=== PATIENT | female | born 1930 | race Caucasian/White ===

== ENCOUNTER 2017-04-11 13:04 | Inpatient (IN) ==
--- NOTE | 2017-04-11 13:32 | Emergency Department Note ---
Disposition Clinical Impression: Fall Qualifiers: Encounter type: initial encounter Qualified Code(s): W19.XXXA - Unspecified fall, initial encounter Hip pain Qualifiers: Laterality: left Qualified Code(s): M25.552 - Pain in left hip Pubic ramus fracture Qualifiers: Encounter type: initial encounter Fracture type: closed Laterality: left Qualified Code(s): S32.592A - Other specified fracture of left pubis, initial encounter for closed fracture Disposition: Admitted As Inpatient Condition: Good Instructions: Fall Prevention for Older Adults (ED) Reasons to Return/Additional Instructions: Please follow up with your primary care provider at the next available appointment. I have provided information to the [facility]. Please return to the emergency department if you have any worsening of your symptoms including worsening of your leg pain, numbness, weakness, tingling, inability to walk or any other symptoms that may be concerning to you. Referrals: [facility] [Outside] Forms: ED Satisfaction Letter Time of Disposition: 16:55 General Adult HPI - General Chief complaint: ED Fall Stated complaint: left leg and hip pain Time Seen by Provider: 04/11/17 13:17 Source: patient, family Limitations: no limitations Nursing Notes Reviewed: Yes Vital Signs Reviewed: Yes - History of Present Illness HPI Narrative: Patient is a 86-year-old female that presents to the emergency department after a fall. She states that she was leaving [employer] today and slipped on the steps of the [employer] and fell into the [facility]. She states that she is now having left hip and leg pain. Patient denies any numbness weakness or tingling. Patient denies any loss of consciousness or hitting her head when she fell. Patient does state that she is on a blood thinner of Plavix and aspirin. Patient denies any loss of bowel or bladder control. Patient denies any back pain at this time. Pain Scale: 6 - Related Data Home Medications Medication Instructions Recorded Confirmed Aspirin [Lo-Dose Aspirin EC] 81 mg PO DAILY 04/11/17 04/11/17 Cholecalciferol (D-3) [Vitamin D] 1,000 unit PO DAILY 04/11/17 04/11/17 Clopidogrel [Plavix] 75 mg PO AD 04/11/17 04/11/17 Levothyroxine [Synthroid] 75 mcg PO DAILY 04/11/17 04/11/17 Loratadine [Allergy Relief] 10 mg PO DAILY 04/11/17 04/11/17 Losartan/Hydrochlorothiazide 0.5 tab PO DAILY 04/11/17 04/11/17 [Losartan-Hctz 100-25 mg Tab] Metoprolol [Lopressor] 25 mg PO DAILY 04/11/17 04/11/17 Simvastatin [Zocor] 0.5 mg PO AD 04/11/17 04/11/17 Allergies Allergy/AdvReac Type Severity Reaction Status Date / Time No Known Allergies Allergy Verified 04/11/17 13:16 All systems ED: reviewed and negative except as stated. Musculoskeletal: Reports: other (Left hip pain, thigh pain and knee pain). Denies: back pain Neurological: Denies: weakness, numbness, paresthesias Past Medical History - Past Medical History Medical history: Reports: diabetes, hypertension, TIA Psychiatric history: Reports: no psych history - Social History Smoking Status: Never smoker Smokeless Tobacco Status: No Alcohol use: Reports: none Drug use: Reports: none Physical Exam - General Limitations: no limitations General appearance: alert, in no apparent distress - Head Head exam: atraumatic, normocephalic - Eye Eye exam: Present: normal appearance, EOMI - Neck Neck exam: Present: normal inspection, full ROM, trachea midline - Respiratory Respiratory exam: Present: normal lung sounds bilaterally. Absent: respiratory distress, wheezes - Cardiovascular Cardiovascular exam: Present: regular rate, normal rhythm, normal heart sounds, +S1, +S2 - Abdominal Exam Abdominal exam: Present: soft, Non-Tender, normal bowel sounds - Expanded Lower Extremity Exam Hip/Pelvis exam: Present: normal inspection, full ROM, tenderness (Patient has tenderness to the left hip) Upper leg exam: Present: normal inspection, full ROM, tenderness (She has tenderness to the left thigh) Knee exam: Present: normal inspection, full ROM, tenderness (Patient has tenderness to the left knee) Lower leg exam: Present: normal inspection, full ROM. Absent: tenderness Ankle exam: Present: normal inspection, full ROM. Absent: tenderness Foot/toe exam: Present: normal inspection, full ROM. Absent: tenderness - Back Exam Back exam: Present: normal inspection, full ROM. Absent: tenderness - Neurological Exam Neurological exam: Present: alert, oriented X3 - Psychiatric Psychiatric exam: Present: normal affect, normal mood - Skin Skin exam: Present: warm, dry, intact Course Vital Signs Temperature 98.1 F 04/11/17 13:12 Pulse Rate 71 04/11/17 13:12 Respiratory Rate 16 04/11/17 13:12 Blood Pressure 141/84 04/11/17 13:12 O2 Sat by Pulse Oximetry 95 04/11/17 13:12 Temperature 98.1 F 04/11/17 13:12 Pulse Rate 71 04/11/17 13:12 Respiratory Rate 16 04/11/17 13:12 Blood Pressure 141/84 04/11/17 13:12 O2 Sat by Pulse Oximetry 95 04/11/17 13:12 Medical Decision Making - MDM Narrative Medical decision making narrative: Due the patient having a recent fall and having pain over the left hip, thigh and knee the patient will receive x-rays to rule out any acute fracture or pathology. The x-rays were negative for acute fracture. The patient will be ambulated throughout the department. During ambulation of the patient she states that she had a lot of pain in her left leg. Due to the patient having significant amounts of pain we will obtain a CT scan of the left lower extremity to rule out possible occult fracture I was unable to be visualized on plain film x-rays. Patient was also given analgesics here in the emergency department.. I called and spoke with Dr. Teague the orthopedist and he reviewed the images and agreed that there was a superior rami fracture. Due to the patient having difficulty with ambulation and stating that it is too painful to stand we felt that the patient should be admitted to the hospital. Dr. Teague was in agreement with this and stated that she may need to be placed for rehabilitation. I did inform the patient of this and her family and they are in agreement with the admission and possible rehabilitation. Patient was offered further analgesics here in the emergency Department but stated she does not need any further pain medication at this time. I called and spoke with the hospitalist and they have accepted the patient to their service. The patient will be admitted to the hospital at this time. - Radiology Data Radiology results reviewed: Yes I reviewed the patient's radiology results. Femur X-Ray 04/11/17 13:27 IMPRESSION: Pelvis: Mild degenerative changes in the hips. No acute osseous abnormality. Left femur: Left total knee arthroplasty. No hardware complication. No acute osseous abnormality. 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 No acute osseous abnormality. RECOMMENDATION: Follow-up studies as clinically indicated. D/ / Bria Jones MD / Bria Jones MD Interpreting Provider: Bria Jones MD Knee X-Ray 04/11/17 13:27 IMPRESSION: Pelvis: Mild degenerative changes in the hips. No acute osseous abnormality. Left femur: Left total knee arthroplasty. No hardware complication. No acute osseous abnormality. 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 No acute osseous abnormality. RECOMMENDATION: Follow-up studies as clinically indicated. D/ / Bria Jones MD / Bria Jones MD Interpreting Provider: Bria Jones MD Pelvis X-Ray 04/11/17 13:27 IMPRESSION: Pelvis: Mild degenerative changes in the hips. No acute osseous abnormality. Left femur: Left total knee arthroplasty. No hardware complication. No acute osseous abnormality. 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 No acute osseous abnormality. RECOMMENDATION: Follow-up studies as clinically indicated. D/ / Bria Jones MD / Bria Jones MD Interpreting Provider: Bria Jones MD Femur X-Ray 04/11/17 13:27 IMPRESSION: Pelvis: Mild degenerative changes in the hips. No acute osseous abnormality. Left femur: Left total knee arthroplasty. No hardware complication. No acute osseous abnormality. 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 No acute osseous abnormality. RECOMMENDATION: Follow-up studies as clinically indicated. D/ / Bria Jones MD / Bria Jones MD Interpreting Provider: Bria Jones MD Knee X-Ray 04/11/17 13:27 IMPRESSION: Pelvis: Mild degenerative changes in the hips. No acute osseous abnormality. Left femur: Left total knee arthroplasty. No hardware complication. No acute osseous abnormality. 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 No acute osseous abnormality. RECOMMENDATION: Follow-up studies as clinically indicated. D/ / Bria Jones MD / Bria Jones MD Interpreting Provider: Bria Jones MD Pelvis X-Ray 04/11/17 13:27 IMPRESSION: Pelvis: Mild degenerative changes in the hips. No acute osseous abnormality. Left femur: Left total knee arthroplasty. No hardware complication. No acute osseous abnormality. 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 No acute osseous abnormality. RECOMMENDATION: Follow-up studies as clinically indicated. D/ / Bria Jones MD / Bria Jones MD Interpreting Provider: Bria Jones MD Lower Extremity CT 04/11/17 14:55 IMPRESSION: Comminuted and minimally displaced fracture of the left superior pubic ramus. No discrete fracture or dislocation of the left hip. D/ / Levi Garduno MD / Levi Garduno MD Interpreting Provider: Levi Garduno MD Attestation Statement - Attestation Attestation: I, Jaime Walker DO, examined this patient [id number] and my medical decision-making was reviewed with Dr. Mehdi Cadet, Resident Physician. I agree with the documented findings, disposition and treatment plan as described except to the extent set forth below. Please see my progress notes for details. 86-year-old female presents to the emergency room after tripping on a stair walking out of [employer]. She fell sideways hitting her left knee and hip on the ground. She did not hit her head. She did not injure her upper extremities or chest. Patient denied any loss of consciousness or closed head trauma this time. Patient was alert and ambulatory on coming in to have pain over the lateral aspect of her left thigh. Patient has no gross deformity or injury to the upper extremities or shoulder girdle. Chest pain range of motion these at this time. She has no chest wall deformity or injury. The original trauma noted there. Lungs are clear heart is regular. Patient mild tenderness over the lateral aspect of the left thyroid no visible signs of bruising deformity or injury. Patient has stable pelvis on evaluation her knee is not deformed or injury. Pulses are intact and sensation is normal in bilateral lower extremities. Imaging modalities of the pelvis left hip left femur and left knee are otherwise unremarkable this time. Will be indicated here in the emergency room and determine disposition. Clinically she did not want CT imaging of the head or neck secondary to the negative workup at this time. Patient is otherwise stable. Disposition to be established. See detailed documentation of the physical exam, medical intervention, medical decision- making and disposition in the resident physician's note [id number] Patient was not able to ambulate secondary to pain. CT imaging confirms what appears to be a comminuted superior pubic rami fracture. No other visible signs of trauma to the hip joint itself at this time. Patient will be ambulated again with what appears to be stable fracture and no acute signs alignment of the pubic symphysis. Patient is informed. Disposition pending information and ability to ambulate. [id number] Patient is unable to ambulate. The CT imaging is reviewed with the the on-call orthopedic physician. He recommended admission to the patient is unable to ambulate. Patient will be admitted this time for psychologist social consultation and possible placement
--- NOTE | 2017-04-11 18:26 | Internal Med History&Physical ---
Date of Encounter: 04/11/17 Time of Encounter: 18:25 Assessment and Plan (1) Pubic ramus fracture Current visit: Yes Status: Acute Fentanyl and Toradol for pain PT ordered for rehab recommendations Non-surgical per ortho. Qualifiers: Encounter type: initial encounter Fracture type: closed Laterality: left Qualified Code(s): S32.592A - Other specified fracture of left pubis, initial encounter for closed fracture (2) Hypothyroidism Current visit: No Status: Chronic Continue home dose of Synthroid Qualifiers: Hypothyroidism type: unspecified Qualified Code(s): E03.9 - Hypothyroidism , unspecified Internal Medicine - H&P: HPI Chief complaint: fall with suprapubic ramus fx Admitted From: Emergency Dept Plans for Post Hospital Care: Transfer Inp Rehab Fac History of present illness: Ms. Vera is a 86 year old female Relatively healthy 86-year-old waman who fell while leaving [employer]. She slipped on the steps and fell into the [facility]. She denies loss of consciousness or hitting her head when she fell. Patient does state that she is not taking anticoagulation but is using aspirin and plavix. n a blood thinner of Plavix and aspirin. Her Xray studies; Pelvis, left knee and left femur did not show fracures or dislocations. The CT lower extremity showed a comminute minimally displaced left pubic rami fracture. Orthopedic surgery was called by the ER attending and per report she will not require surgery. We are asked to admit for symptomatic control and evaluation for rehab. She cannot bear weight or walk. Pain Scale: 6 Past Med Surg Social Fam HX - Past Medical History Medical history: diabetes, hypertension, TIA Psychiatric history: no psych history - Social History Smoking Status: Never smoker Smokeless Tobacco Status: No Alcohol use: none Drug use: none Internal Medicine - H&P: Meds Aspirin [Lo-Dose Aspirin EC] 81 mg PO DAILY 04/11/17 [History] Cholecalciferol (D-3) [Vitamin D] 1,000 unit PO DAILY 04/11/17 [History] Clopidogrel [Plavix] 75 mg PO AD 04/11/17 [History] Levothyroxine [Synthroid] 75 mcg PO DAILY 04/11/17 [History] Loratadine [Allergy Relief] 10 mg PO DAILY 04/11/17 [History] Losartan/Hydrochlorothiazide [Losartan-Hctz 100-25 mg Tab] 0.5 tab PO DAILY 01/16 [History] Metoprolol [Lopressor] 25 mg PO DAILY 04/11/17 [History] Simvastatin [Zocor] 0.5 mg PO AD 04/11/17 [History] 3 Allergy/AdvReac Type Severity Reaction Status Date / Time No Known Allergies Allergy Verified 04/11/17 13:16 All Systems PM: A 10-system review of systems was performed and is negative for pertinent findings except as documented above in the HPI. - Constitutional Constitutional: falls, no anorexia, no chills, no excessive sweating, no lethargy, no weight gain, no weight loss - EENT Eyes: no blurry vision, no decreased night vision, no irritation, no loss of peripheral vision, no photophobia, no tunnel vision Nose, mouth and throat: no epistaxis, no facial pain, no mouth pain, no nasal congestion, no nasal obstruction, no neck mass, no neck pain, no sinus pain, no sore throat, no throat swelling - Cardiovascular Cardiovascular ROS IM: no chest pain, no claudication, no dyspnea, no edema, no irregular heart rhythm - Respiratory Respiratory: no cough, no hemoptysis, no snoring, no stridor - Gastrointestinal Gastrointestinal: no bloating, no change in stool character, no coffee ground emesis, no heartburn, no hematemesis, no hematochezia, no melena - Musculoskeletal Musculoskeletal ROS IM: no arthralgias, no back pain, no myalgias, no neck pain , no numbness - Integumentary Integumentary IM: no new lesions, no rash, no skin ulcer, no jaundice - Psychiatric Psychiatric: no hallucinations, no homicidal ideation, no suicidal ideation - Endocrine Endocrine IM: no cold intolerance, no heat intolerance, no polyphagia, no polyuria - Allergic/Immunologic Allergic/Immunologic: no seasonal rhinorrhea, no wheezing - Constitutional Vitals: Temp Pulse Resp BP Pulse Ox 98.1 F 69 16 144/65 98 04/11/17 13:12 04/11/17 16:53 04/11/17 17:43 04/11/17 17:43 04/11/17 16:53 General appearance: Present: A&O X 3, pleasant, no acute distress - Head Head exam: Present: atraumatic, normocephalic - Eye Eye exam: Present: EOMI, PERRL, conjuntiva pink, sclera anicteric Pupils: Present: PERRL - Neck Neck exam general surgery: Present: supple, trachea midline. Absent: lymphadenopathy - Respiratory Respiratory exam: Present: CTAB. Absent: accessory muscle use, rales, rhonchi, wheezes - Cardiovascular Cardiovascular exam: Present: RRR, +S1, +S2. Absent: diastolic murmur, gallop, rubs, systolic murmur - GI/Abdominal GI/Abdominal exam: Present: normal bowel sounds, soft, no peritoneal signs. Absent: distended, tenderness - Extremities Exam Extremities exam: Present: warm, radial pulses palpable and symmetrical. Absent : calf tenderness, cyanotic, pedal edema - Neurological Exam Neurological exam: Present: CN II-XII intact, oriented X3, no focal deficits. Absent: pronater drift, facial droop, speech deficit - Skin Skin exam: Present: dry, intact
[2017-04-11] MEDS ORDERED: *HR* FentaNYL (PF) 100 MCG/2 ML VIAL IVP PRN (19:04)
[2017-04-11] MEDS: *HR* Heparin 5,000 UNIT/ML VIAL SQ SCH (21:17)
[2017-04-11] MEDS: traMADol 50 MG TABLET PO PRN (23:36)
[2017-04-12] MEDS: *HR* Heparin 5,000 UNIT/ML VIAL SQ SCH ×3 (06:32→21:31)
[2017-04-12 07:37] LABS: Basophils % 0.8 %; Eosinophils # 0.1 K/mcL (0.0-0.6); Eosinophils % 1.5 %; Hematocrit 33.4 % (35.3-44.9); Hemoglobin 11.1 g/dL (11.5-15.4); Immature Granulocytes % 0.2 % (0-4); Lymphocytes # 0.8 K/mcL (0.6-4.6); Lymphocytes % 16.1 %; Mean Corpuscular HGB Conc 33.2 g/dL (31.6-35.5); Mean Corpuscular Hemoglobin 30.1 pg (28.0-33.3); Mean Corpuscular Volume 90.5 fL (83.0-100.0); Monocytes # 0.5 K/mcL (0.0-1.3); Monocytes % 10.9 %; Neutrophils # 3.4 K/mcL (1.6-8.9); Platelet Count 200 K/mcL (140-400); Red Blood Count 3.69 M/mcL (3.82-4.97); Red Cell Distribution Width 13.2 % (11.5-14.5); Segmented Neutrophils % 70.5 %
--- NOTE | 2017-04-12 08:11 | Orthopedic Consult Note ---
Date of Encounter: 04/12/17 Time of Encounter: 08:09 Assessment and Plan (1) Pubic ramus fracture Current Visit: Yes Status: Acute I did discuss the diagnosis in detail with the agent as well as her daughter-in- law. She has a stable pelvic ring injury. Nonoperative management. Recommendation is for a consult to physical therapy with weightbearing as tolerated and for mobilization. Consult social work for placement. She will require an x-ray in one week for radiographic reevaluation. She can see me at that time in the office. I will be available as needed for reconsultation for any new or worsening concerns. Qualifiers: Encounter type: initial encounter Fracture type: closed Laterality: left Qualified Code(s): S32.592A - Other specified fracture of left pubis, initial encounter for closed fracture History of Present Illness HPI: Ms. Vera is a 86 year old female who is currently admitted to the hospitalist due to a pelvic ring injury involving the left superior pubic ramus. The patient had a fall while leaving [employer] yesterday. She was seen in the emergency department where CT scan revealed the injury. She was admitted due to pain with weightbearing and for placement issues. On my evaluation the patient complains of generalized pain throughout her body not being isolated to any one particular area. She denies any numbness, tingling, or other signs or symptoms. She says there are no modifying factors. She has not been up to ambulate since the injury. She lives independently at home and is an unassisted community ambulator at baseline. She lives by herself but has multiple visitors frequently. Past Med Surg Social Fam HX - Past Medical History Medical history: diabetes, hypertension, TIA Psychiatric history: no psych history - Social History Smoking Status: Never smoker Smokeless Tobacco Status: No Alcohol use: none Drug use: none Medications and Allergies Aspirin [Lo-Dose Aspirin EC] 81 mg PO DAILY 04/11/17 [History] Cholecalciferol (D-3) [Vitamin D] 1,000 unit PO DAILY 04/11/17 [History] Clopidogrel [Plavix] 75 mg PO AD 04/11/17 [History] Levothyroxine [Synthroid] 75 mcg PO DAILY 04/11/17 [History] Loratadine [Allergy Relief] 10 mg PO DAILY 04/11/17 [History] Losartan/Hydrochlorothiazide [Losartan-Hctz 100-25 mg Tab] 0.5 tab PO DAILY 01/16 [History] Metoprolol [Lopressor] 25 mg PO DAILY 04/11/17 [History] Simvastatin [Zocor] 0.5 mg PO AD 04/11/17 [History] 3 Allergy/AdvReac Type Severity Reaction Status Date / Time No Known Allergies Allergy Verified 04/11/17 13:16 All Systems Reviewed: A 10-system review of systems was performed and is negative for pertinent findings except as documented above in the HPI. Physical Exam - Constitutional Vitals: Temp Pulse Resp BP Pulse Ox 98.1 F 77 14 129/77 94 04/12/17 06:47 04/12/17 06:47 04/12/17 06:47 04/12/17 06:47 04/12/17 06:47 Constitutional -Vitals reviewed -The patient is well developed and well nourished. -Mood is pleasant. -The patient is well groomed. Psychiatric -The patient is fully alert and oriented x 3. Respiratory: -Respiratory effort normal Abdomen: -Soft abdomen -Non tender -Non distended: Left upper extremity: -No deformities. The overlying skin is intact. No obvious signs of acute trauma. -No tenderness to palpation throughout. -No significant pain with passive motion of the shoulder, elbow, wrist, and fingers within the limits of the bed. -Able to make an "OK" sign, cross the index and long fingers, and extend the thumb. -Sensation grossly intact to light touch throughout the median, radial, and ulnar distributions. -Radial pulse is present; Fingers have good capillary refill. Right upper extremity: -No deformities. The overlying skin is intact. No obvious signs of acute trauma. -No tenderness to palpation throughout. -No significant pain with passive motion of the shoulder, elbow, wrist, and fingers within the limits of the bed. -Able to make an "OK" sign, cross the index and long fingers, and extend the thumb. -Sensation grossly intact to light touch throughout the median, radial, and ulnar distributions. -Radial pulse is present; Fingers have good capillary refill. Left lower extremity: -No deformities. The overlying skin is intact. No obvious signs of acute trauma. -No tenderness to palpation throughout. -Mild to moderate pain with passive motion of the hip. -No pain with passive motion of the knee, ankle, and toes within the limits of the bed. -No pain with axial loading of the thigh. -Able to dorsiflex and plantarflex the ankle and toes. -Sensation is grossly intact to light touch throughout the sural, saphenous, superficial peroneal, and deep peroneal distributions. -Toes have good capillary refill. Right lower extremity: -No deformities. The overlying skin is intact. No obvious signs of acute trauma. -No tenderness to palpation throughout. -No pain with passive motion of the hip, knee, ankle, and toes within the limits of the bed. -No pain with axial loading of the thigh. -Able to dorsiflex and plantarflex the ankle and toes. -Sensation is grossly intact to light touch throughout the sural, saphenous, superficial peroneal, and deep peroneal distributions. -Toes have good capillary refill. I did evaluate the CT scan of the pelvis which did show a left superior pubic ramus fracture without definite injury to the remainder of the pelvic ring Results - Labs Result Diagrams: 04/12/17 06:28 Labs: Abnormal lab results RBC 3.69 M/mcL (3.82-4.97) L 04/12/17 06:28 Hgb 11.1 g/dL (11.5-15.4) L 04/12/17 06:28 Hct 33.4 % (35.3-44.9) L 04/12/17 06:28 H & H 04/12/17 Range/Units 06:28 Hgb 11.1 L (11.5-15.4) g/dL Hct 33.4 L (35.3-44.9) % All other labs normal. Consult Discharge Plan - Plan Referrals: Katelin Baez DO [Primary Care Provider] -
[2017-04-12] MEDS ORDERED: Aspirin Enteric Coated 81 MG Tablet PO SCH (09:00)
[2017-04-12 09:45] LABS: BUN/Creatinine Ratio 14 (6-26); Blood Urea Nitrogen 11 mg/dL (8-23); Calcium 8.9 mg/dL (8.6-10.3); Carbon Dioxide 27 mEq/L (23-29); Chloride 100 mEq/L (98-107); Glucose 98 mg/dL (70-105); Osmolality,Calculated 277 (280-300); Potassium 3.4 mEq/L (3.5-5.1); Sodium 134 mEq/L (136-145); eGFR For African Americans > 60 (> 60); eGFR For Non-African Americans > 60 (> 60)
--- NOTE | 2017-04-12 10:40 | Internal Med Progress Note ---
Date of Encounter: 04/12/17 Time of Encounter: 09:50 - Assessment and plan (1) Pubic ramus fracture Current Visit: Yes Status: Acute Qualifiers: Encounter type: initial encounter Fracture type: closed Laterality: left Qualified Code(s): S32.592A - Other specified fracture of left pubis, initial encounter for closed fracture (2) Hypothyroidism Current Visit: No Status: Chronic Qualifiers: Hypothyroidism type: unspecified Qualified Code(s): E03.9 - Hypothyroidism , unspecified - Subjective Interval history: HPI: Relatively healthy 86-year-old waman who fell while [place] [employer]. She slipped on the steps [facility] She denies loss of consciousness or hitting her head when she fell. Patient does state that she is not taking anticoagulation but is using aspirin and plavix. Her Xray studies ; Pelvis, left knee and left femur did not show fracures or dislocations. The CT lower extremity showed a comminute minimally displaced left pubic rami fracture. Orthopedic surgery was called by the ER attending and per report she will not require surgery. We are asked to admit for symptomatic control and evaluation for rehab. Interval Changes: She was evaluated by Orthopedic surgery today and has been ut bathroom with walker and states she had only minimal pain. Assessment and Plan (1) Pubic ramus fracture Orthopedic surgery saw her today and concluded she has a stable pelvic ring injury which will require nonoperative management. Recommendation is for a consult to physical therapy with weightbearing as tolerated and for mobilization. [employer] has been consulted for placement. She will require an x-ray in one week for radiographic reevaluation. She can f/u with orthopedic surgery after d/c. Continue Fentanyl and Toradol for pain. Awaiting PT to evaluate rehab needs. (2) Hypothyroidism Continue home dose of Synthroid VTE prophylaxis SQ Heparin - Constitutional Vitals: Temp Pulse Resp BP Pulse Ox 98.1 F 77 14 129/77 94 04/12/17 06:47 04/12/17 06:47 04/12/17 06:47 04/12/17 06:47 04/12/17 06:47 General appearance: Present: A&O X 3, pleasant, no acute distress - Head Head exam: Present: atraumatic, normocephalic - Eye Eye exam: Present: PERRL, conjuntiva pink, sclera anicteric Pupils: Present: PERRL - Neck Neck exam general surgery: Present: supple, trachea midline. Absent: lymphadenopathy - Respiratory Respiratory exam: Present: CTAB. Absent: accessory muscle use, rales, rhonchi, wheezes - Cardiovascular Cardiovascular exam: Present: RRR, +S1, +S2. Absent: diastolic murmur, gallop, rubs, systolic murmur - GI/Abdominal GI/Abdominal exam: Present: normal bowel sounds, soft, no peritoneal signs. Absent: distended, tenderness - Extremities Exam Extremities exam: Present: warm, radial pulses palpable and symmetrical. Absent : calf tenderness, cyanotic, pedal edema - Neurological Exam Neurological exam: Present: CN II-XII intact, oriented X3, no focal deficits. Absent: pronater drift, facial droop, speech deficit - Skin Skin exam: Present: dry, intact Internal Medicine: Result - Labs CBC & Chem 7: 04/12/17 06:28 04/12/17 06:28 Labs: Short CBC 04/12/17 Range/Units 06:28 WBC 4.8 (4.3-11.1) K/mcL Hgb 11.1 L (11.5-15.4) g/dL Hct 33.4 L (35.3-44.9) % Plt Count 200 (140-400) K/mcL Neutrophils # 3.4 (1.6-8.9) K/mcL BMP 04/12/17 06:28 Sodium 134 L Potassium 3.4 L Chloride 100 Carbon Dioxide 27 BUN 11 Creatinine 0.76 Glucose 98 Calcium 8.9 Consult Discharge Plan - Plan Referrals: Katelin Baez DO [Primary Care Provider] -
[2017-04-12] MEDS: traMADol 50 MG TABLET PO PRN ×2 (10:54→19:52)
[2017-04-12] MEDS: Loratadine 10 MG TABLET PO SCH (11:57)
[2017-04-12] MEDS: Cholecalciferol (D-3) 1,000 UNIT TABLET PO SCH (11:57)
[2017-04-12] MEDS: *HR* OxyCODONE/APAP 5/325 TABLET PO PRN (15:45)
[2017-04-12] MEDS: Losartan/HCTZ 50-12.5 TABLET PO SCH (15:46)
[2017-04-12] MEDS: Aspirin Enteric Coated 81 MG Tablet PO SCH (21:31)
[2017-04-13] MEDS: *HR* OxyCODONE/APAP 5/325 TABLET PO PRN ×2 (03:15→17:05)
[2017-04-13 05:13] LABS: Basophils # 0.1 K/mcL (0.0-0.2); Basophils % 1.1 %; Eosinophils # 0.1 K/mcL (0.0-0.6); Eosinophils % 2.6 %; Hematocrit 33.2 % (35.3-44.9); Hemoglobin 11.2 g/dL (11.5-15.4); Immature Granulocytes % 0.2 % (0-4); Mean Corpuscular HGB Conc 33.7 g/dL (31.6-35.5); Mean Corpuscular Hemoglobin 30.5 pg (28.0-33.3); Mean Corpuscular Volume 90.5 fL (83.0-100.0); Mean Platelet Volume 10.1 fL (9.4-12.4); Monocytes # 0.7 K/mcL (0.0-1.3); Monocytes % 13.3 %; Neutrophils # 3.5 K/mcL (1.6-8.9); Platelet Count 198 K/mcL (140-400); Red Blood Count 3.67 M/mcL (3.82-4.97); Red Cell Distribution Width 13.2 % (11.5-14.5); Segmented Neutrophils % 63.8 %
[2017-04-13 05:32] LABS: BUN/Creatinine Ratio 16 (6-26); Blood Urea Nitrogen 14 mg/dL (8-23); Calcium 8.9 mg/dL (8.6-10.3); Carbon Dioxide 27 mEq/L (23-29); Chloride 101 mEq/L (98-107); Glucose 118 mg/dL (70-105); Osmolality,Calculated 280 (280-300); Potassium 3.4 mEq/L (3.5-5.1); Sodium 134 mEq/L (136-145); eGFR For African Americans > 60 (> 60); eGFR For Non-African Americans > 60 (> 60)
[2017-04-13] MEDS: *HR* Heparin 5,000 UNIT/ML VIAL SQ SCH ×3 (06:15→20:21)
[2017-04-13] MEDS: Cholecalciferol (D-3) 1,000 UNIT TABLET PO SCH (09:17)
[2017-04-13] MEDS: Losartan/HCTZ 50-12.5 TABLET PO SCH (09:17)
[2017-04-13] MEDS: Loratadine 10 MG TABLET PO SCH (09:17)
[2017-04-13] MEDS: traMADol 50 MG TABLET PO PRN ×2 (09:46→20:20)
--- NOTE | 2017-04-13 16:28 | Internal Med Progress Note ---
Date of Encounter: 04/13/17 Time of Encounter: 16:25 - Assessment and plan (1) Pubic ramus fracture Current Visit: Yes Status: Acute Assessment and plan: Nonoperative management, continue physical therapy. Doing well with PT Discharge tomorrow to [place]. Qualifiers: Encounter type: initial encounter Fracture type: closed Laterality: left Qualified Code(s): S32.592A - Other specified fracture of left pubis, initial encounter for closed fracture (2) Hypothyroidism Current Visit: No Status: Chronic Qualifiers: Hypothyroidism type: unspecified Qualified Code(s): E03.9 - Hypothyroidism , unspecified - Subjective Interval history: No issues, no acute events. - Constitutional Vitals: Temp Pulse Resp BP Pulse Ox 97.9 F 75 15 123/65 94 04/13/17 15:29 04/13/17 15:29 04/13/17 15:29 04/13/17 15:29 04/13/17 15:29 General appearance: Present: A&O X 3, pleasant, no acute distress Exam: - Head Head exam: Present: atraumatic, normocephalic - Eye Eye exam: Present: PERRL, conjuntiva pink, sclera anicteric Pupils: Present: PERRL - Neck Neck exam general surgery: Present: supple, trachea midline. Absent: lymphadenopathy - Respiratory Respiratory exam: Present: CTAB. Absent: accessory muscle use, rales, rhonchi, wheezes - Cardiovascular Cardiovascular exam: Present: RRR, +S1, +S2. Absent: diastolic murmur, gallop, rubs, systolic murmur - GI/Abdominal GI/Abdominal exam: Present: normal bowel sounds, soft, no peritoneal signs. Absent: distended, tenderness - Extremities Exam Extremities exam: Present: warm, radial pulses palpable and symmetrical. Absent : calf tenderness, cyanotic, pedal edema - Neurological Exam Neurological exam: Present: CN II-XII intact, oriented X3, no focal deficits. Absent: pronater drift, facial droop, speech deficit - Skin Skin exam: Present: dry, intact Internal Medicine: Result - Labs CBC & Chem 7: 04/13/17 04:29 04/13/17 04:29 Labs: Short CBC 04/13/17 Range/Units 04:29 WBC 5.5 (4.3-11.1) K/mcL Hgb 11.2 L (11.5-15.4) g/dL Hct 33.2 L (35.3-44.9) % Plt Count 198 (140-400) K/mcL Neutrophils # 3.5 (1.6-8.9) K/mcL BMP 04/13/17 04:29 Sodium 134 L Potassium 3.4 L Chloride 101 Carbon Dioxide 27 BUN 14 Creatinine 0.88 Glucose 118 H Calcium 8.9 - VTE Documentation of Mechanical Device: Intermittent pneumatic compression device Consult Discharge Plan - Plan Referrals: Katelin Baez DO [Primary Care Provider] -
[2017-04-13] MEDS: Aspirin Enteric Coated 81 MG Tablet PO SCH (21:23)
[2017-04-14] MEDS: *HR* OxyCODONE/APAP 5/325 TABLET PO PRN ×2 (03:01→12:25)
[2017-04-14] MEDS: *HR* Heparin 5,000 UNIT/ML VIAL SQ SCH (06:08)
[2017-04-14] MEDS: Loratadine 10 MG TABLET PO SCH (07:54)
[2017-04-14] MEDS: Cholecalciferol (D-3) 1,000 UNIT TABLET PO SCH (07:54)
[2017-04-14] MEDS: traMADol 50 MG TABLET PO PRN (07:55)
[2017-04-14] MEDS: Losartan/HCTZ 50-12.5 TABLET PO SCH (07:55)
--- NOTE | 2017-04-14 11:20 | Discharge Summary ---
Date of Encounter: 04/14/17 Time of Encounter: 11:14 - Discharge Diagnosis (1) Pubic ramus fracture Priority: Primary Status: Acute Qualifiers: Encounter type: initial encounter Fracture type: closed Laterality: left Qualified Code(s): S32.592A - Other specified fracture of left pubis, initial encounter for closed fracture (2) Hypothyroidism Priority: Secondary Status: Chronic Qualifiers: Hypothyroidism type: unspecified Qualified Code(s): E03.9 - Hypothyroidism , unspecified - Discharge Medications Prescriptions: OxyCODONE/APAP 5/325 [Percocet 5/325 MG] 1 each PO Q6HR PRN 7 Days #10 tablet PRN Reason: Severe Pain Home Medications: Aspirin [Lo-Dose Aspirin EC] 81 mg PO DAILY 04/11/17 [History] Cholecalciferol (D-3) [Vitamin D] 1,000 unit PO DAILY 04/11/17 [History] Clopidogrel [Plavix] 75 mg PO AD 04/11/17 [History] Levothyroxine [Synthroid] 75 mcg PO DAILY 04/11/17 [History] Loratadine [Allergy Relief] 10 mg PO DAILY 04/11/17 [History] Losartan/Hydrochlorothiazide [Losartan-Hctz 100-25 mg Tab] 0.5 tab PO DAILY 01/16 [History] Metoprolol [Lopressor] 25 mg PO DAILY 04/11/17 [History] Simvastatin [Zocor] 20 mg PO HS 04/11/17 [History] Docusate [Colace] 100 mg PO DAILY capsule 04/14/17 [Rx] OxyCODONE/APAP 5/325 [Percocet 5/325 MG] 1 each PO Q6HR PRN 7 Days #10 tablet [Rx] Polyethylene Glycol 3350 [MiraLAX] 17 gm PO DAILY PRN powd.pack 04/14/17 [Rx] Tramadol HCl [Ultram] 50 mg PO TID PRN 7 Days #12 tab 04/14/17 [Rx] Allergies/Adverse Reactions: 3 Allergy/AdvReac Type Severity Reaction Status Date / Time No Known Allergies Allergy Verified 04/11/17 13:16 Date of admission: 04/11/17 18:44 Primary care physician: Katelin Baez DO Consults: 04/11/17 19:01 PT [Consult to Physical Therapy] [CONS] Routine Comment: Evaluate, develop and implement POC Reason for Consult: Superior pubic ramus fracture 04/12/17 10:51 Consult to Discharge Planning [CONS] Routine Comment: Waitng for PT recommendations for rehab 04/12/17 11:23 Consult to Occupational Therapy [CONS] Routine Comment: Evaluate, develop and implement POC Reason for Consult: discharge planning, pubic fracture s/p fall 04/12/17 13:29 Consult to [employer] [CONS] Routine Reason for SW Consult: discharge planning Discharging clinician: Ric Antoine - Patient Status Disposition: Transfer SNF Condition: Good Functional capacity at discharge: wheelchair bound Overall status at discharge: patient is progressing back to baseline - Discharge Instructions Follow Up With: Katelin Baez DO [Primary Care Provider] - - Diet and Activity Activity: as per physical therapy Diet: advance to your usual diet Hospital course: Relatively healthy 86-year-old waman who fell while leaving [employer]. She slipped on the steps and fell into the [facility]. She denies loss of consciousness or hitting her head when she fell. Patient does state that she is not taking anticoagulation but is using aspirin and plavix. n a blood thinner of Plavix and aspirin. Her Xray studies; Pelvis, left knee and left femur did not show fracures or dislocations. The CT lower extremity showed a comminute minimally displaced left pubic rami fracture. Orthopedic surgery was called by the ER attending and per report she will not require surgery. We are asked to admit for symptomatic control and evaluation for rehab. She cannot bear weight or walk. Orthopedic Surgery was consulted. Based on evaluation, patient is not a surgery for candidate, non operative treatment was started. She did well with physical therapy. She was discharged to [place] in stable condition. - Time Spent with Patient Total time spent providing and/or coordinating discharge services: - Constitutional Vitals: Temp Pulse Resp BP Pulse Ox 97.9 F 61 14 121/57 96 04/14/17 07:26 04/14/17 07:26 04/14/17 07:26 04/14/17 07:26 04/14/17 07:26 General appearance: Present: A&O X 3, pleasant, no acute distress - Head Head exam: Present: atraumatic, normocephalic - Eye Eye exam: Present: PERRL, conjuntiva pink, sclera anicteric Pupils: Present: PERRL - Neck Neck exam general surgery: Present: supple, trachea midline. Absent: lymphadenopathy - Respiratory Respiratory exam: Present: CTAB. Absent: accessory muscle use, rales, rhonchi, wheezes - Cardiovascular Cardiovascular exam: Present: RRR, +S1, +S2. Absent: diastolic murmur, gallop, rubs, systolic murmur - GI/Abdominal GI/Abdominal exam: Present: normal bowel sounds, soft, no peritoneal signs. Absent: distended, tenderness - Extremities Exam Extremities exam: Present: warm, radial pulses palpable and symmetrical. Absent : calf tenderness, cyanotic, pedal edema - Neurological Exam Neurological exam: Present: CN II-XII intact, oriented X3, no focal deficits. Absent: pronater drift, facial droop, speech deficit - Skin Skin exam: Present: dry, intact - VTE Documentation of Mechanical Device: Graduated compression elastic hosiery
[2017-04-14 11:25] VITALS: BP 120/82
--- NOTE | 2017-04-14 11:27 | Physician Discharge Referral ---
ExtendedCare Referral Info Provider in Charge after Transfer: Other Institutional Level of Care: Skilled - Diagnosis (1) Pubic ramus fracture Priority: Primary Status: Acute (2) Hypothyroidism Priority: Secondary Status: Chronic - Transfer Medications Prescriptions: OxyCODONE/APAP 5/325 [Percocet 5/325 MG] 1 each PO Q6HR PRN 7 Days #10 tablet PRN Reason: Severe Pain Tramadol HCl [Ultram] 50 mg PO TID PRN 7 Days #12 tab PRN Reason: Mild Pain Home Medications: Aspirin [Lo-Dose Aspirin EC] 81 mg PO DAILY 04/11/17 [History] Cholecalciferol (D-3) [Vitamin D] 1,000 unit PO DAILY 04/11/17 [History] Clopidogrel [Plavix] 75 mg PO AD 04/11/17 [History] Levothyroxine [Synthroid] 75 mcg PO DAILY 04/11/17 [History] Loratadine [Allergy Relief] 10 mg PO DAILY 04/11/17 [History] Losartan/Hydrochlorothiazide [Losartan-Hctz 100-25 mg Tab] 0.5 tab PO DAILY 01/16 [History] Metoprolol [Lopressor] 25 mg PO DAILY 04/11/17 [History] Simvastatin [Zocor] 20 mg PO HS 04/11/17 [History] Docusate [Colace] 100 mg PO DAILY capsule 04/14/17 [Rx] OxyCODONE/APAP 5/325 [Percocet 5/325 MG] 1 each PO Q6HR PRN 7 Days #10 tablet [Rx] Polyethylene Glycol 3350 [MiraLAX] 17 gm PO DAILY PRN powd.pack 04/14/17 [Rx] Tramadol HCl [Ultram] 50 mg PO TID PRN 7 Days #12 tab 04/14/17 [Rx] Allergies/Adverse Reactions: 3 Allergy/AdvReac Type Severity Reaction Status Date / Time No Known Allergies Allergy Verified 04/11/17 13:16 - Respiratory Orders Smoking Cessation: Smoking cessation has been advised. For more information, call the [employer] Quit Line at 8-770-WCYG-NOW. - Ancillary Orders May use pressure relief devices daily prn, May consult with Dentist, Subway Car Repairer, Act English Tutor PRN - Mobility Orders Other (as per physical therapy) - Rehabiliation Orders Rehab Orders: Evaluation for Physical Therapy, Evaluation for Occupational Therapy - Treatments Skin tear care topically daily PRN per policy, May check for fecal impaction rectally daily PRN, Fleet enema rectally every other day PRN cleansing purposes - Diet Orders Regular CERTIFICATION: I certify that the transfer of the above named patient to an Extended Care Facility is necessary for the continuing treatment of the diagnosis listed. The above information is true and accurate reflection of patient's current condition. Confidential - Redisclosure prohibited without a patient's written consent.
== END 2017-04-14 13:31 | DRG 536 ==
LOC: EMEROO 13:04 → 3NENU 13:04 → 1NENUPED 04-12 08:49
PROVIDERS: ADMIT Internal Medicine; ATTEND Internal Medicine

== ENCOUNTER 2017-05-15 22:37 | Inpatient (IN) ==
--- NOTE | 2017-05-16 00:47 | Emergency Department Note ---
Disposition Clinical Impression: Hyponatremia Disposition: Admitted As Inpatient Condition: Undetermined Abdominal Pain HPI - General Chief Complaint: ED Abdominal Pain Stated Complaint: impacted/cant poo Time Seen by Provider: 05/15/17 23:22 Source: patient Mode of arrival: ambulatory Limitations: no limitations Nursing Notes Reviewed: Yes Vital Signs Reviewed: Yes - History of Present Illness HPI Narrative: 86-year-old female with a history of status post left symphysis pubis pelvic fracture on 04/11/17, hypertension, hyperlipidemia, vitamin D deficiency, constipation due to opioid use presents emergency department for constipation. Patient states it has been a week since she has had a proper bowel movement. Over the last 3 days family has been given her mag citrate, enemas, Colace, and other laxatives without any effort. Patient states that she states feels very full and is starting to have abdominal pain, be uncomfortable, nausea. She denies vomiting. Patient received an enema earlier today that was unsuccessful. She only had 1 small sliver of stool output, the family did not notice any sign of impaction. Family states that they have not noticed much flatus production from the patient , patient states that she has not had much luck passing gas. Patient denies painful bowel movements, she denies genitourinary complaints. She states she recently has been released to start walking and she has a walking with a walker within the last couple days which has not helped her have any type of bowel movement. Patient has been on tramadol for pain along with her other daily medications. Pt Subjective Complaint: abdominal pain Onset (ago): day(s) Consistency: constant Location: LLQ, RLQ Pain Severity: moderate, severe Pain Scale: 5 Quality: cramping, fullness Radiation: L flank, R flank Migration to: no migration Improves with: nothing Worsens with: nothing Context: new medications Associated symptoms: Reports: nausea, constipation. Denies: vomiting, diarrhea , fever, chills, dysuria, hematemesis, hematochezia, melena, hematuria, anorexia , syncope, other Treatments prior to arrival: other (Mag citrate, enemas, Colace, Senokot) - Related Data Home Medications Medication Instructions Recorded Confirmed Aspirin [Lo-Dose Aspirin EC] 81 mg PO DAILY 04/11/17 04/11/17 Cholecalciferol (D-3) [Vitamin D] 1,000 unit PO DAILY 04/11/17 04/11/17 Clopidogrel [Plavix] 75 mg PO AD 04/11/17 04/11/17 Levothyroxine [Synthroid] 75 mcg PO DAILY 04/11/17 04/11/17 Loratadine [Allergy Relief] 10 mg PO DAILY 04/11/17 04/11/17 Losartan/Hydrochlorothiazide 0.5 tab PO DAILY 04/11/17 04/11/17 [Losartan-Hctz 100-25 mg Tab] Metoprolol [Lopressor] 25 mg PO DAILY 04/11/17 04/11/17 Simvastatin [Zocor] 20 mg PO HS 04/11/17 04/12/17 Previous Rx's Medication Instructions Recorded Docusate [Colace] 100 mg PO DAILY capsule 04/14/17 OxyCODONE/APAP 5/325 [Percocet 1 each PO Q6HR PRN 7 Days #10 04/14/17 5/325 MG] tablet Polyethylene Glycol 3350 [MiraLAX] 17 gm PO DAILY PRN powd.pack 04/14/17 Tramadol HCl [Ultram] 50 mg PO TID PRN 7 Days #12 tab 04/14/17 Allergies Allergy/AdvReac Type Severity Reaction Status Date / Time No Known Allergies Allergy Verified 04/11/17 13:16 All systems ED: reviewed and negative except as stated. Review of Systems: As Per HPI Constitutional: Denies: fever, chills, weakness, weight change Cardiovascular: Denies: chest pain, palpitations, edema, syncope Respiratory: Denies: cough, dyspnea, wheezes, hemoptysis Gastrointestinal: Reports: abdominal pain, nausea, constipation. Denies: vomiting, diarrhea, hematemesis, melena, hematochezia Genitourinary: Denies: urgency, dysuria, frequency, hematuria Musculoskeletal: Denies: back pain Integumentary: Denies: rash Abdominal Pain PMH - Past Medical History Medical history: Reports: hypertension, TIA, other (Sundowners) Female Surgical History: Reports: knee replacement, orthopedic, other Psychiatric history: Reports: no psych history - Social History Smoking status: Never smoker Alcohol use: Reports: none Drug use: Reports: none Physical Exam - General Limitations: no limitations General appearance: alert, in no apparent distress - Head Head exam: atraumatic, normocephalic, normal inspection - Neck Neck exam: Present: normal inspection, full ROM, trachea midline - Chest Chest inspection: Present: normal inspection, symmetric chest wall rise - Respiratory Respiratory exam: Present: normal lung sounds bilaterally - Cardiovascular Cardiovascular exam: Present: regular rate, normal rhythm, normal heart sounds - Abdominal Exam Abdominal exam: Present: soft, tenderness, normal bowel sounds. Absent: distention, guarding, rebound, rigidity Abdominal tenderness: Present: RLQ, LLQ, suprapubic, mild - Rectal Exam Halftone Operator present during exam: Yes Rectal exam: Present: normal inspection, normal rectal tone, decreased rectal tone. Absent: black stool, bloody stool, fecal impaction, hemorrhoids, mass, tenderness - Back Exam Back exam: Present: normal inspection, full ROM. Absent: tenderness - Neurological Exam Neurological exam: Present: alert, oriented X3, CN II-XII intact, other (Noted with intermittent confusion, family states she does experience sundowner's) - Psychiatric Psychiatric exam: Present: normal affect, normal mood - Skin Skin exam: Present: warm, dry, intact, normal color Course Course Narrative: 86-year-old female with a history of status post left symphysis pubis pelvic fracture on 04/11/17, hypertension, hyperlipidemia, vitamin D deficiency, constipation due to opioid use presents emergency department for constipation. Patient states it has been a week since she has had a proper bowel movement. Over the last 3 days family has been given her mag citrate, enemas, Colace, and other laxatives without any effort. Patient states that she states feels very full and is starting to have abdominal pain, be uncomfortable, nausea. She denies vomiting. Patient received an enema earlier today that was unsuccessful. She only had 1 small sliver of stool output, the family did not notice any sign of impaction. Family states that they have not noticed much flatus production from the patient , patient states that she has not had much luck passing gas. Patient denies painful bowel movements, she denies genitourinary complaints. She states she recently has been released to start walking and she has a walking with a walker within the last couple days which has not helped her have any type of bowel movement. Patient has been on tramadol for pain along with her other daily medications. Well-hydrated, well-nourished female with a large pannus laying on the cot, she does not appear in distress at this time. 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 Respirations are easy and even. Abdominal exam reveals slight tenderness to suprapubic area bilateral lower quadrants with radiation to the bilateral flanks. No masses, organomegaly noted with palpation. Bowel sounds 4 active; rectal exam without signs of impaction. Concern for bowel traction related to history of constipation now with a new opioid and decreased movement, constipation. We will obtain basic labs and a CT scan. - Reevaluation(s) Reevaluation #1: Sodium returns critical low 120 and potassium 2.6, which is a 738 mEq sodium deficit. Glucose 110 via lab and 103 POC. We will give a bolus of IV fluids, as well as 40 mEq of potassium. We will admit patient to hospital for severe hyponatremia patient and family agreeable to plan of care. Continue to await other labs and CT scan.. Time: 01:06 Reevaluation #2: Spoke with hospitalist. Willing to admit the patient under hospitalist services for severe hyponatremia. CT returned with diverticulosis without signs of obstruction or diverticulitis. Continue to await CBC and other labs. Time: 01:51 Vital Signs Temperature 98.1 F 05/15/17 22:48 Pulse Rate 81 05/15/17 22:48 Respiratory Rate 14 05/15/17 22:48 Blood Pressure 139/80 05/15/17 22:48 O2 Sat by Pulse Oximetry 99 05/15/17 22:48 Temperature 98 F 05/16/17 04:25 Pulse Rate 74 05/16/17 04:25 Respiratory Rate 20 05/16/17 04:25 Blood Pressure 141/70 05/16/17 04:25 O2 Sat by Pulse Oximetry 97 05/16/17 04:25 Oxygen Delivery Oxygen Delivery Room Air Abdominal Pain - Lab Data Result diagrams: 05/16/17 06:14 05/16/17 00:10 Lab Results 05/16/17 05/16/17 05/16/17 Range/Units 00:10 00:21 00:58 WBC (4.3-11.1) K/mcL RBC (3.82-4.97) M/mcL Hgb (11.5-15.4) g/dL Hct (35.3-44.9) % MCV (83.0-100.0) fL MCH (28.0-33.3) pg MCHC (31.6-35.5) g/dL RDW (11.5-14.5) % Plt Count (140-400) K/mcL MPV (9.4-12.4) fL Immature Gran % (0-4) % Seg Neutrophils % % Lymphocytes % % Monocytes % % Eosinophils % % Basophils % % Neutrophils # (1.6-8.9) K/mcL Lymphocytes # (0.6-4.6) K/mcL Monocytes # (0.0-1.3) K/mcL Eosinophils # (0.0-0.6) K/mcL Basophils # (0.0-0.2) K/mcL Immature Plt Fraction (1.1-6.1) % Sodium 120 L* (136-145) mEq/L Potassium 2.6 L (3.5-5.1) mEq/L Chloride 86 L (98-107) mEq/L Carbon Dioxide 21 L (23-29) mEq/L BUN 8 (8-23) mg/dL Creatinine 0.79 (0.60-1.20) mg/dL Est GFR ( Amer) > 60 (> 60) Est GFR (Non-Af Amer) > 60 (> 60) BUN/Creatinine Ratio 10 (6-26) Glucose 110 H (70-105) mg/dL POC Glucose 103 H (58-89) Calculated Osmolality 249 L (280-300) Calcium 9.3 (8.6-10.3) mg/dL Total Bilirubin 0.9 (0.3-1.0) mg/dL Direct Bilirubin 0.2 (0.0-0.2) mg/dL Indirect Bilirubin 0.7 (0.0-1.2) mg/dL AST 26 (13-39) Units/L ALT 16 (7-52) Units/L Alkaline Phosphatase 129 H (34-104) Units/L Serum Total Protein 6.5 (6.4-8.9) g/dL Albumin 3.9 (3.5-5.7) g/dL Globulin 2.6 (2.4-3.5) g/dL Albumin/Globulin Ratio 1.5 (1.1-2.2) Lipase 57 (11-82) Units/L Urine Color (Yellow) Urine Clarity (Clear) Urine pH (5.0-8.0) pH Units Ur Specific [place] (1.010-1.025) Urine Protein (Neg-Trace) mg/dL Urine Glucose (UA) (Normal) mg/dL Urine Ketones (Negative) mg/dL Urine Blood (Negative) Urine Nitrite (Negative) Urine Bilirubin (Negative) Urine Urobilinogen (Normal) mg/dL Ur Leukocyte Esterase (Negative) Ur Culture Indicated? (NO) Specimen Rejected Clotted 05/16/17 05/16/17 05/16/17 Range/Units 01:07 01:32 02:10 WBC 6.2 (4.3-11.1) K/mcL RBC 3.33 L (3.82-4.97) M/mcL Hgb 10.2 L (11.5-15.4) g/dL Hct 27.9 L (35.3-44.9) % MCV 83.8 D (83.0-100.0) fL MCH 30.6 (28.0-33.3) pg MCHC 36.6 H (31.6-35.5) g/dL RDW 12.4 (11.5-14.5) % Plt Count 237 (140-400) K/mcL MPV 9.6 (9.4-12.4) fL Immature Gran % 0.8 (0-4) % Seg Neutrophils % 70.9 % Lymphocytes % 15.0 % Monocytes % 11.5 % Eosinophils % 1.0 % Basophils % 0.8 % Neutrophils # 4.4 (1.6-8.9) K/mcL Lymphocytes # 0.9 (0.6-4.6) K/mcL Monocytes # 0.7 (0.0-1.3) K/mcL Eosinophils # 0.1 (0.0-0.6) K/mcL Basophils # 0.1 (0.0-0.2) K/mcL Immature Plt Fraction 3.1 (1.1-6.1) % Sodium (136-145) mEq/L Potassium (3.5-5.1) mEq/L Chloride (98-107) mEq/L Carbon Dioxide (23-29) mEq/L BUN (8-23) mg/dL Creatinine (0.60-1.20) mg/dL Est GFR ( Amer) (> 60) Est GFR (Non-Af Amer) (> 60) BUN/Creatinine Ratio (6-26) Glucose (70-105) mg/dL POC Glucose (58-89) Calculated Osmolality (280-300) Calcium (8.6-10.3) mg/dL Total Bilirubin (0.3-1.0) mg/dL Direct Bilirubin (0.0-0.2) mg/dL Indirect Bilirubin (0.0-1.2) mg/dL AST (13-39) Units/L ALT (7-52) Units/L Alkaline Phosphatase (34-104) Units/L Serum Total Protein (6.4-8.9) g/dL Albumin (3.5-5.7) g/dL Globulin (2.4-3.5) g/dL Albumin/Globulin Ratio (1.1-2.2) Lipase (11-82) Units/L Urine Color Yellow (Yellow) Urine Clarity Clear (Clear) Urine pH 7.5 (5.0-8.0) pH Units Ur Specific [place] 1.008 L (1.010-1.025) Urine Protein Negative (Neg-Trace) mg/dL Urine Glucose (UA) Normal (Normal) mg/dL Urine Ketones 15 H (Negative) mg/dL Urine Blood Negative (Negative) Urine Nitrite Negative (Negative) Urine Bilirubin Negative (Negative) Urine Urobilinogen Normal (Normal) mg/dL Ur Leukocyte Esterase Negative (Negative) Ur Culture Indicated? NO (NO) Specimen Rejected MCV Delta Attestation Statement - Attestation Attestation: I, Gigi Gregory MD, personally evaluated this patient and discussed their management with the midlevel provicer, PAC[facility] DEL[facility]ERY. I reviewed the midlevel provider 's note and agree with the documented findings, medical decision making, and plan of care. 86-year-old female presents to the emergency department complaining constipation. Patient had a pubic symphysis fracture about 6 weeks ago. She has been less mobile and just recently started getting around with a walker. She presents tonight complaining of abdominal pain, worse in the right lower abdomen. No bowel movement for several days. Family has tried laxatives and enemas with no relief. No fever. No GI bleed symptoms. No UTI symptoms. On examination patient is a well-developed well-nourished elderly female in no acute distress. She has alert and answers questions appropriately. She appears very anxious and shaky. She appears to be hyperventilating. Breath sounds are clear and equal bilaterally. Heart regular rate and rhythm. Abdomen is soft with present bowel sounds. There is mild diffuse tenderness with moderate tenderness in the right mid and lower abdomen. No guarding or rebound tenderness. Labs reviewed. Sodium 120. Potassium 2.6. CT of the abdomen and pelvis showed : 1. Minimal left-sided hydronephrosis without identifiable cause. 2. Diverticulosis without scan evidence for diverticulitis. The hospitalist, Dr. Woods, was consulted and accepted admission of the patient.
[2017-05-16 00:51] LABS: Alanine Aminotransferase 16 Units/L (7-52); Albumin 3.9 g/dL (3.5-5.7); Albumin/Globulin Ratio 1.5 (1.1-2.2); Alkaline Phosphatase 129 Units/L (34-104); Aspartate Amino Transferase 26 Units/L (13-39); BUN/Creatinine Ratio 10 (6-26); Bilirubin,Direct 0.2 mg/dL (0.0-0.2); Bilirubin,Indirect 0.7 mg/dL (0.0-1.2); Bilirubin,Total 0.9 mg/dL (0.3-1.0); Blood Urea Nitrogen 8 mg/dL (8-23); Calcium 9.3 mg/dL (8.6-10.3); Carbon Dioxide 21 mEq/L (23-29); Chloride 86 mEq/L (98-107); Globulin 2.6 g/dL (2.4-3.5); Glucose 110 mg/dL (70-105); Lipase 57 Units/L (11-82); Osmolality,Calculated 249 (280-300); Potassium 2.6 mEq/L (3.5-5.1); Sodium 120 mEq/L (136-145); Total Protein 6.5 g/dL (6.4-8.9); eGFR For African Americans > 60 (> 60); eGFR For Non-African Americans > 60 (> 60)
[2017-05-16] MEDS ORDERED: 0.9 % Sodium Chloride 1,000 ML IVC ONE (00:52)
[2017-05-16 01:18] LABS: Bilirubin,Urine Negative (Negative); Blood,Urine Negative (Negative); Clarity,Urine Clear (Clear); Color,Urine Yellow (Yellow); Glucose,Urine (UA) Normal (Normal); Ketones,Urine 15 mg/dL (Negative); Leukocyte Esterase,Urine Negative (Negative); Nitrite,Urine Negative (Negative); PH,Urine 7.5 pH Units (5.0-8.0); Protein,Urine Negative (Neg-Trace); Specific Gravity,Urine 1.008 (1.010-1.025); Urobilinogen,Urine Normal (Normal)
[2017-05-16] MEDS ORDERED: Potassium Chloride Elixir 20 MEQ/15 ML UDC PO ONE (01:26)
--- NOTE | 2017-05-16 02:27 | Internal Med History&Physical ---
Date of Encounter: 05/16/17 Time of Encounter: 02:18 Assessment and Plan (1) Hyponatremia Current visit: No Status: Acute Hyponatremia and the hypokalemia is likely from dehydration and nausea, we will give IV fluids and the replace potassium Will DC hydrochlorothiazide due to hyponatremia (2) Constipation due to opioid therapy Current visit: No Status: Acute Well and her Colace, MiraLAX, CT scan shows no obstruction, DC opiates (3) Hyperlipidemia Current visit: No Status: Acute Qualifiers: Hyperlipidemia type: unspecified Qualified Code(s): E78.5 - Hyperlipidemia , unspecified (4) Nocturnal confusion Current visit: No Status: Acute Please avoid opiates and benzos (5) Pubic ramus fracture Current visit: No Status: Acute Patient is able to walk with a walker Qualifiers: Encounter type: subsequent encounter Fracture type: closed Laterality: unspecified laterality Fracture healing: with routine healing Qualified Code (s): S32.599D - Other specified fracture of unspecified pubis, subsequent encounter for fracture with routine healing (6) Vitamin D deficiency Current visit: No Status: Acute (7) Hypertension Current visit: No Status: Chronic DC hydrochlorothiazide due to hyponatremia Qualifiers: Hypertension type: essential hypertension Qualified Code(s): I10 - Essential (primary) hypertension (8) Hypothyroidism Current visit: No Status: Chronic Check TSH Qualifiers: Hypothyroidism type: unspecified Qualified Code(s): E03.9 - Hypothyroidism , unspecified Internal Medicine - H&P: HPI Chief complaint: constipaion Admitted From: Home Plans for Post Hospital Care: Home History of present illness: Ms. Vera is a 86 year old female history of TIA hypothyroidism hypertension hyperlipidemia recent pelvic fracture presenting to the emergency room for constipation abdominal pain. Patient had the pelvic fracture in April 2017, discharge home, she become very inactive but is able to walk with a walker. she started having abdominal pain 3 days ago associated with nausea unable to keep food down. Abdominal pains located bilateral lower abdominal, diffuse 4 out of 10 aching. She has no BM 3 days. Family is concerned about a she is not eating and drinking. In the emergency room she was find the severe hyponatremia hypokalemia, CT abdominal and initial obstruction, left sided hydronephrosis diverticulosis no evidence of diverticulitis, UA is negative for infection, normal CR patient is admitted for hypokalemia and hyponatremia. I discussed CODE STATUS with patient and her family, she is DNR-CCA no intubation Past Med Surg Social Fam HX - Past Medical History Medical history: hypertension, TIA, other (Sundowners) Psychiatric history: no psych history - Past Surgical History Surgical History: cholecystectomy, knee replacement (Bilateral knee replacement and left TSR reverse), other - Social History Smoking Status: Never smoker Smokeless Tobacco Status: No Alcohol use: none Drug use: none Internal Medicine - H&P: Meds Aspirin [Lo-Dose Aspirin EC] 81 mg PO DAILY 04/11/17 [History] Cholecalciferol (D-3) [Vitamin D] 1,000 unit PO DAILY 04/11/17 [History] Clopidogrel [Plavix] 75 mg PO AD 04/11/17 [History] Levothyroxine [Synthroid] 75 mcg PO DAILY 04/11/17 [History] Loratadine [Allergy Relief] 10 mg PO DAILY 04/11/17 [History] Losartan/Hydrochlorothiazide [Losartan-Hctz 100-25 mg Tab] 0.5 tab PO DAILY 01/16 [History] Metoprolol [Lopressor] 25 mg PO DAILY 04/11/17 [History] Simvastatin [Zocor] 20 mg PO HS 04/11/17 [History] Docusate [Colace] 100 mg PO DAILY capsule 04/14/17 [Rx] OxyCODONE/APAP 5/325 [Percocet 5/325 MG] 1 each PO Q6HR PRN 7 Days #10 tablet [Rx] Polyethylene Glycol 3350 [MiraLAX] 17 gm PO DAILY PRN powd.pack 04/14/17 [Rx] Tramadol HCl [Ultram] 50 mg PO TID PRN 7 Days #12 tab 04/14/17 [Rx] 3 Allergy/AdvReac Type Severity Reaction Status Date / Time No Known Allergies Allergy Verified 04/11/17 13:16 All Systems PM: A 10-system review of systems was performed and is negative for pertinent findings except as documented above in the HPI. - Constitutional Vitals: Temp Pulse Resp BP Pulse Ox 98.1 F 59 22 108/73 99 05/15/17 22:48 05/16/17 02:02 05/16/17 02:02 05/16/17 02:02 05/16/17 02:02 General appearance: Present: A&O X 3 Exam: CONSTITUTIONAL: patient appears as an age appropriate female in no acute distress. EYES Clear sclerae, bilateral pupils are equal, reactive to light. EMOI. RESPIRATORY: No accessory muscle use, bilateral clear to auscultation, no wheezing, no crackles/rales. CARDIOVASCULAR: Regular heart rate, normal S1 and S2, no murmurs GASTROINTESTINAL: bowel sounds present, soft, no tenderness. MUSCULOSKELETAL: Joints in normal range of motion, no clubbing, no edema, no cyanosis. Bilateral peripheral pulses 2+. NEUROLOGIC: CN II to XII are grossly intact, no focal neurological deficit. Internal Med - H&P Results - Labs CBC & Chem 7: 05/16/17 00:10 Labs: BMP 05/16/17 00:10 Sodium 120 L* Potassium 2.6 L Chloride 86 L Carbon Dioxide 21 L BUN 8 Creatinine 0.79 Glucose 110 H Calcium 9.3 Liver Function 05/16/17 Range/Units 00:10 Total Bilirubin 0.9 (0.3-1.0) mg/dL Direct Bilirubin 0.2 (0.0-0.2) mg/dL AST 26 (13-39) Units/L ALT 16 (7-52) Units/L Alkaline Phosphatase 129 H (34-104) Units/L Albumin 3.9 (3.5-5.7) g/dL Urine 05/16/17 Range/Units 01:07 Urine Color Yellow (Yellow) Urine Clarity Clear (Clear) Urine pH 7.5 (5.0-8.0) pH Units Ur Specific [place] 1.008 L (1.010-1.025) Urine Protein Negative (Neg-Trace) mg/dL Urine Glucose (UA) Normal (Normal) mg/dL - Impressions ITS Impressions Abdomen/Pelvis CT 05/15/17 23:51 IMPRESSION: 1. Minimal left-sided hydronephrosis without identifiable cause. 2. Diverticulosis without scan evidence for diverticulitis. D/ / Tee West MD / Tee West MD Interpreting Provider: Tee West MD
[2017-05-16] MEDS ORDERED: Naloxone 0.4 MG/ML INJ IVP PRN (02:33)
[2017-05-16 02:45] LABS: Basophils # 0.1 K/mcL (0.0-0.2); Basophils % 0.8 %; Eosinophils # 0.1 K/mcL (0.0-0.6); Hematocrit 27.9 % (35.3-44.9); Hemoglobin 10.2 g/dL (11.5-15.4); Immature Granulocytes % 0.8 % (0-4); Immature Platelets 3.1 % (1.1-6.1); Lymphocytes # 0.9 K/mcL (0.6-4.6); Mean Corpuscular HGB Conc 36.6 g/dL (31.6-35.5); Mean Corpuscular Hemoglobin 30.6 pg (28.0-33.3); Mean Corpuscular Volume 83.8 fL (83.0-100.0); Mean Platelet Volume 9.6 fL (9.4-12.4); Monocytes # 0.7 K/mcL (0.0-1.3); Monocytes % 11.5 %; Neutrophils # 4.4 K/mcL (1.6-8.9); Platelet Count 237 K/mcL (140-400); Red Blood Count 3.33 M/mcL (3.82-4.97); Red Cell Distribution Width 12.4 % (11.5-14.5); Segmented Neutrophils % 70.9 %
[2017-05-16] MEDS ORDERED: traMADol 50 MG TABLET PO PRN (04:24)
[2017-05-16] MEDS: 0.9 % Sodium Chloride w KCl 20 MEQ/1,000 ML MLS IVC SCH ×2 (04:33→17:26)
[2017-05-16 06:25] LABS: Basophils # 0.1 K/mcL (0.0-0.2); Basophils % 0.9 %; Eosinophils # 0.1 K/mcL (0.0-0.6); Eosinophils % 0.9 %; Hematocrit 28.3 % (35.3-44.9); Hemoglobin 10.2 g/dL (11.5-15.4); Immature Granulocytes % 0.4 % (0-4); Lymphocytes # 0.8 K/mcL (0.6-4.6); Lymphocytes % 13.3 %; Mean Corpuscular Hemoglobin 30.4 pg (28.0-33.3); Mean Corpuscular Volume 84.2 fL (83.0-100.0); Mean Platelet Volume 9.6 fL (9.4-12.4); Monocytes # 0.8 K/mcL (0.0-1.3); Monocytes % 13.3 %; Platelet Count 231 K/mcL (140-400); Red Blood Count 3.36 M/mcL (3.82-4.97); Red Cell Distribution Width 12.4 % (11.5-14.5); Segmented Neutrophils % 71.2 %
[2017-05-16] MEDS: *HR* Heparin 5,000 UNIT/ML VIAL SQ SCH ×3 (06:42→21:58)
[2017-05-16 06:50] LABS: BUN/Creatinine Ratio 10 (6-26); Blood Urea Nitrogen 7 mg/dL (8-23); Calcium 8.3 mg/dL (8.6-10.3); Carbon Dioxide 21 mEq/L (23-29); Chloride 95 mEq/L (98-107); Chol/HDL Ratio 1.8 (0-4.9); Cholesterol 101 mg/dL (< 200); Glucose 108 mg/dL (70-105); HDL Cholesterol 56 mg/dL (40-59); LDL Cholesterol,Calculated 32 mg/dL (0-99); Magnesium 1.5 mg/dL (1.6-2.6); Osmolality,Calculated 255 (280-300); Phosphorous 2.4 mg/dL (2.7-4.5); Potassium 3.1 mEq/L (3.5-5.1); Sodium 123 mEq/L (136-145); Triglycerides 65 mg/dL (< 150); eGFR For African Americans > 60 (> 60); eGFR For Non-African Americans > 60 (> 60)
[2017-05-16 07:02] LABS: Thyroid Stimulating Hormone 2.639 mcIU/mL (0.340-5.600)
[2017-05-16] MEDS: Aspirin Enteric Coated 81 MG Tablet PO SCH (08:59)
[2017-05-16] MEDS: Loratadine 10 MG TABLET PO SCH (08:59)
[2017-05-16] MEDS: Cholecalciferol (D-3) 1,000 UNIT TABLET PO SCH (09:05)
[2017-05-16] MEDS: Ipratropium/Albuterol Neb 3 ML IH PRN ×2 (09:49→16:54)
[2017-05-16 10:59] LABS: Magnesium 1.5 mg/dL (1.6-2.6)
--- NOTE | 2017-05-16 11:02 | Internal Med Progress Note ---
Date of Encounter: 05/16/17 Time of Encounter: 08:30 - Assessment and plan (1) Hyponatremia Current Visit: Yes Status: Acute Assessment and plan: Slowly improving..now @ 123 due to dehydration and HCTZ use d/c HCTZ cont Q6hr Na check Ordered urine Na, Osm and Serum Osm goal of correction for Na 0.5 meq/hr not more than 8-10 meq / day (2) Constipation due to opioid therapy Current Visit: No Status: Acute Assessment and plan: on stool softeners (3) Pubic ramus fracture Current Visit: No Status: Acute Assessment and plan: PT / OT eval Qualifiers: Encounter type: subsequent encounter Fracture type: closed Laterality: unspecified laterality Fracture healing: with routine healing Qualified Code (s): S32.599D - Other specified fracture of unspecified pubis, subsequent encounter for fracture with routine healing (4) Hypertension Current Visit: No Status: Chronic Assessment and plan: Resumed not Losartan Qualifiers: Hypertension type: essential hypertension Qualified Code(s): I10 - Essential (primary) hypertension (5) Hypothyroidism Current Visit: No Status: Chronic Assessment and plan: cont home meds Qualifiers: Hypothyroidism type: unspecified Qualified Code(s): E03.9 - Hypothyroidism , unspecified - Subjective Interval history: Ms. Vera is a 86 year old female history of TIA, hypothyroidism, hypertension, hyperlipidemia recent pelvic fracture presenting to the emergency room for constipation abdominal pain. Patient had the pelvic fracture in April 2017, discharge home, she become very inactive but is able to walk with a walker. she started having abdominal pain 3 days ago associated with nausea unable to keep food down. Abdominal pains located bilateral lower abdominal, diffuse 4 out of 10 aching. She has no BM 3 days. Family is concerned about a she is not eating and drinking. In the emergency room she was find the severe hyponatremia hypokalemia, CT abdominal with no obstruction, left sided mild hydronephrosis diverticulosis no evidence of diverticulitis, UA is negative for infection. Patient is admitted for hypokalemia and hyponatremia. Pt symptoms started improving slowly. Denied any CP / SOB. Tolerating PO intake ok now. - Constitutional Vitals: Temp Pulse Resp BP Pulse Ox 97.8 F 74 16 149/77 95 05/16/17 10:53 05/16/17 10:53 05/16/17 10:53 05/16/17 10:53 05/16/17 10:53 General appearance: Present: cooperative, A&O X 3, answers questions appropriately - Head Head exam: Present: atraumatic, normal inspection - Neck Neck exam general surgery: Present: supple - Respiratory Respiratory exam: Present: decreased breath sounds. Absent: rales, respiratory distress, rhonchi, wheezes - Cardiovascular Cardiovascular exam: Present: RRR, +S1, +S2. Absent: tachycardia - GI/Abdominal GI/Abdominal exam: Present: normal bowel sounds, soft. Absent: rebound, rigid, tenderness - Extremities Exam Extremities exam: Absent: calf tenderness, pedal edema, tenderness - Back Exam Back exam: Absent: CVA tenderness (L), CVA tenderness (R) - Neurological Exam Neurological exam: Present: alert, oriented X3 - Psychiatric Psychiatric exam: Present: normal affect, normal mood Internal Medicine: Result - Labs CBC & Chem 7: 05/16/17 06:14 05/16/17 06:14 Labs: Short CBC 05/16/17 Range/Units 06:14 WBC 5.6 (4.3-11.1) K/mcL Hgb 10.2 L (11.5-15.4) g/dL Hct 28.3 L (35.3-44.9) % Plt Count 231 (140-400) K/mcL Neutrophils # 4.0 (1.6-8.9) K/mcL BMP 05/16/17 06:14 Sodium 123 L Potassium 3.1 L Chloride 95 L Carbon Dioxide 21 L BUN 7 L Creatinine 0.72 Glucose 108 H Calcium 8.3 L Consult Discharge Plan - Plan Referrals: Katelin Baez DO [Primary Care Provider] - (web request 05/16/2017)
[2017-05-16 23:14] LABS: Potassium 3.6 mEq/L (3.5-5.1)
[2017-05-17 04:31] LABS: Basophils # 0.1 K/mcL (0.0-0.2); Basophils % 1.2 %; Eosinophils # 0.2 K/mcL (0.0-0.6); Eosinophils % 4.2 %; Hematocrit 30.9 % (35.3-44.9); Hemoglobin 10.6 g/dL (11.5-15.4); Immature Granulocytes % 0.6 % (0-4); Lymphocytes # 0.9 K/mcL (0.6-4.6); Lymphocytes % 18.3 %; Mean Corpuscular HGB Conc 34.3 g/dL (31.6-35.5); Mean Corpuscular Hemoglobin 29.9 pg (28.0-33.3); Mean Corpuscular Volume 87.3 fL (83.0-100.0); Mean Platelet Volume 9.6 fL (9.4-12.4); Monocytes # 0.6 K/mcL (0.0-1.3); Monocytes % 12.5 %; Neutrophils # 3.2 K/mcL (1.6-8.9); Platelet Count 256 K/mcL (140-400); Red Blood Count 3.54 M/mcL (3.82-4.97); Red Cell Distribution Width 13.4 % (11.5-14.5); Segmented Neutrophils % 63.2 %
[2017-05-17 04:47] LABS: BUN/Creatinine Ratio 6 (6-26); Blood Urea Nitrogen 4 mg/dL (8-23); Calcium 8.5 mg/dL (8.6-10.3); Carbon Dioxide 21 mEq/L (23-29); Chloride 102 mEq/L (98-107); Glucose 101 mg/dL (70-105); Magnesium 1.8 mg/dL (1.6-2.6); Osmolality,Calculated 269 (280-300); Potassium 3.5 mEq/L (3.5-5.1); Sodium 131 mEq/L (136-145); eGFR For African Americans > 60 (> 60); eGFR For Non-African Americans > 60 (> 60)
[2017-05-17] MEDS: *HR* Heparin 5,000 UNIT/ML VIAL SQ SCH (06:34)
--- NOTE | 2017-05-17 08:27 | Internal Med Progress Note ---
Date of Encounter: 05/17/17 - Assessment and plan (1) Hyponatremia Current Visit: Yes Status: Acute Assessment and plan: Slowly improving..now @ 123 due to dehydration and HCTZ use d/c HCTZ cont Q6hr Na check Ordered urine Na, Osm and Serum Osm goal of correction for Na 0.5 meq/hr not more than 8-10 meq / day (2) Constipation due to opioid therapy Current Visit: No Status: Acute Assessment and plan: on stool softeners (3) Pubic ramus fracture Current Visit: No Status: Acute Assessment and plan: PT / OT eval Qualifiers: Encounter type: subsequent encounter Fracture type: closed Laterality: unspecified laterality Fracture healing: with routine healing Qualified Code (s): S32.599D - Other specified fracture of unspecified pubis, subsequent encounter for fracture with routine healing (4) Hypertension Current Visit: No Status: Chronic Assessment and plan: Resumed not Losartan Qualifiers: Hypertension type: essential hypertension Qualified Code(s): I10 - Essential (primary) hypertension (5) Hypothyroidism Current Visit: No Status: Chronic Assessment and plan: cont home meds Qualifiers: Hypothyroidism type: unspecified Qualified Code(s): E03.9 - Hypothyroidism , unspecified - Subjective Interval history: Ms. Vera is a 86 year old female history of TIA, hypothyroidism, hypertension, hyperlipidemia recent pelvic fracture presenting to the emergency room for constipation abdominal pain. Patient had the pelvic fracture in April 2017, discharge home, she become very inactive but is able to walk with a walker. she started having abdominal pain 3 days ago associated with nausea unable to keep food down. Abdominal pains located bilateral lower abdominal, diffuse 4 out of 10 aching. She has no BM 3 days. Family is concerned about a she is not eating and drinking. In the emergency room she was find the severe hyponatremia hypokalemia, CT abdominal with no obstruction, left sided mild hydronephrosis diverticulosis no evidence of diverticulitis, UA is negative for infection. Patient is admitted for hypokalemia and hyponatremia. Pt symptoms started improving slowly. Denied any CP / SOB. Tolerating PO intake ok now. - Constitutional Vitals: Temp Pulse Resp BP Pulse Ox 98.3 F 80 20 128/76 97 05/17/17 06:54 05/17/17 06:54 05/17/17 06:54 05/17/17 06:54 05/17/17 06:54 General appearance: Present: cooperative, A&O X 3, answers questions appropriately Internal Medicine: Result - Labs CBC & Chem 7: 05/17/17 03:59 05/17/17 03:59 Labs: Short CBC 05/17/17 Range/Units 03:59 WBC 5.0 (4.3-11.1) K/mcL Hgb 10.6 L (11.5-15.4) g/dL Hct 30.9 L (35.3-44.9) % Plt Count 256 (140-400) K/mcL Neutrophils # 3.2 (1.6-8.9) K/mcL BMP 05/16/17 05/16/17 05/17/17 16:26 22:27 03:59 Sodium 128 L 129 L 131 L Potassium 3.6 3.5 Chloride 102 Carbon Dioxide 21 L BUN 4 L Creatinine 0.71 Glucose 101 Calcium 8.5 L Consult Discharge Plan - Plan Referrals: Katelin Baez DO [Primary Care Provider] - (web request 05/16/2017)
[2017-05-17] MEDS ORDERED: Metoprolol XL (24 HR) Succ 25 MG TAB.ER.24H PO SCH (09:00)
[2017-05-17] MEDS: Cholecalciferol (D-3) 1,000 UNIT TABLET PO SCH (09:11)
[2017-05-17] MEDS: Aspirin Enteric Coated 81 MG Tablet PO SCH (09:11)
[2017-05-17] MEDS: Loratadine 10 MG TABLET PO SCH (09:11)
[2017-05-17 11:08] VITALS: BP 149/82
--- NOTE | 2017-05-17 13:28 | Discharge Summary ---
- NOTES TO OUTPATIENT PROVIDER Notes to Outpatient Provider: stop taking Losartan/HCTZ tablet. Start taking Losartan 50mg PO Daily for your BP. f/u with PCP in one week Date of Encounter: 05/17/17 Time of Encounter: 13:25 - Discharge Diagnosis (1) Hyponatremia Priority: Primary Status: Acute (2) Constipation due to opioid therapy Priority: Primary Status: Acute (3) Pubic ramus fracture Priority: Secondary Status: Acute Qualifiers: Encounter type: subsequent encounter Fracture type: closed Laterality: unspecified laterality Fracture healing: with routine healing Qualified Code (s): S32.599D - Other specified fracture of unspecified pubis, subsequent encounter for fracture with routine healing (4) Hypertension Priority: Secondary Status: Chronic Qualifiers: Hypertension type: essential hypertension Qualified Code(s): I10 - Essential (primary) hypertension (5) Hypothyroidism Priority: Secondary Status: Chronic Qualifiers: Hypothyroidism type: unspecified Qualified Code(s): E03.9 - Hypothyroidism , unspecified Hospital course: Ms. Vera is a 86 year old female history of TIA, hypothyroidism, hypertension, hyperlipidemia recent pelvic fracture presenting to the emergency room for constipation abdominal pain. Patient had the pelvic fracture in April 2017, discharge home, she become very inactive but is able to walk with a walker. she started having abdominal pain 3 days ago associated with nausea unable to keep food down. Abdominal pains located bilateral lower abdominal, diffuse 4 out of 10 aching. She has no BM 3 days. Family is concerned about a she is not eating and drinking. In the emergency room she was find the severe hyponatremia hypokalemia, CT abdominal with no obstruction, left sided mild hydronephrosis diverticulosis no evidence of diverticulitis, UA is negative for infection. Patient is admitted for hypokalemia and hyponatremia. Pt was started on IV hydration and held her HCTZ too. Pt was also given bowel regimen / stool softeners. Pt symptoms started improving slowly. Her Sodium was corrected slowly , this afternoon @ 132. Denied any CP / SOB. Tolerating PO intake ok now. So will d/c her home in stable condition today. - Time Spent with Patient Total time spent providing and/or coordinating discharge services: - Discharge Medications Prescriptions: Losartan Potassium [Cozaar] 50 mg PO DAILY #30 tab Polyethylene Glycol 3350 [MiraLAX] 17 gm PO DAILY PRN #15 powd.pack PRN Reason: Constipation Home Medications: Aspirin [Lo-Dose Aspirin EC] 81 mg PO DAILY 04/11/17 [History] Cholecalciferol (D-3) [Vitamin D] 1,000 unit PO DAILY 04/11/17 [History] Clopidogrel [Plavix] 75 mg PO AD 04/11/17 [History] Levothyroxine [Synthroid] 75 mcg PO DAILY 04/11/17 [History] Loratadine [Allergy Relief] 10 mg PO DAILY 04/11/17 [History] Simvastatin [Zocor] 20 mg PO HS 04/11/17 [History] Losartan Potassium [Cozaar] 50 mg PO DAILY #30 tab 05/17/17 [Rx] Metoprolol Succinate [Toprol Xl] 25 mg PO DAILY 05/17/17 [History] Polyethylene Glycol 3350 [MiraLAX] 17 gm PO DAILY PRN #15 powd.pack 05/17/17 [Rx ] Allergies/Adverse Reactions: 3 Allergy/AdvReac Type Severity Reaction Status Date / Time No Known Allergies Allergy Verified 04/11/17 13:16 Date of admission: 05/16/17 13:56 Primary care physician: Katelin Baez DO - Constitutional Vitals: Temp Pulse Resp BP Pulse Ox 98.6 F 81 16 149/82 98 05/17/17 11:06 05/17/17 11:06 05/17/17 11:06 05/17/17 11:06 05/17/17 11:06 General appearance: Present: cooperative, A&O X 3, answers questions appropriately - Head Head exam: Present: atraumatic, normal inspection - Respiratory Respiratory exam: Present: decreased breath sounds. Absent: rales, respiratory distress, rhonchi, wheezes - Cardiovascular Cardiovascular exam: Present: RRR, +S1, +S2. Absent: tachycardia - GI/Abdominal GI/Abdominal exam: Present: normal bowel sounds, soft. Absent: rebound, rigid, tenderness - Extremities Exam Extremities exam: Absent: calf tenderness, pedal edema, tenderness - Back Exam Back exam: Absent: CVA tenderness (L), CVA tenderness (R) - Neurological Exam Neurological exam: Present: alert, oriented X3 - Psychiatric Psychiatric exam: Present: normal affect - Patient Status Disposition: Home, Self-Care Condition: Good Overall status at discharge: patient is back to baseline - Discharge Instructions Follow Up With: Katelin Baez DO [Primary Care Provider] - (web request 05/16/2017) - Diet and Activity Activity: increase activity as tolerated Diet: low salt diet
--- NOTE | 2017-05-18 08:09 | Electrocardiograph Report ---
[address] [place] [address] Test Date: 2017-05-17 Pat Name: [facility], [place] Department: 112 Room: 2A11 Gender: F Retail Clerk: : [id number] Requested By: Garrett Casey Order Number: [id number] Reading MD: Guillermina Martinez Measurements Intervals [place] Rate: 80 P: 31 UT: 167 QRS: -16 QRSD: 92 T: -21 QT: 379 QTc: 415 Interpretive Statements SINUS RHYTHM LOW QRS VOLTAGE IN PRECORDIAL LEADS VOLTAGE CRITERIA FOR LVH ST DEVIATION AND MODERATE T-WAVE ABNORMALITY, CONSIDER ANTEROLATERAL ISCHEMIA Electronically Signed On 05-18-2017 7:34:52 EDT by Guillermina Martinez
== END 2017-05-17 14:30 | disposition home or self-care (01) | DRG 641 ==
LOC: EMEROO 22:37 → 2ANU 22:37
PROVIDERS: ADMIT Hospitalist; ATTEND Family Medicine

== ENCOUNTER 2018-07-06 18:57 | Inpatient (IN) ==
--- NOTE | 2018-07-06 19:39 | Emergency Department Note ---
Disposition Clinical Impression: Deep vein thrombosis of lower extremity Qualifiers: Affected thrombotic vein of extremity: popliteal Chronicity: acute Laterality: left Qualified Code(s): I82.432 - Acute embolism and thrombosis of left popliteal vein Disposition: Home, Self-Care Condition: Good Instructions: Deep Venous Thrombosis (ED) Prescriptions: Rivaroxaban [Xarelto] 1 dose PO AD 30 Days pack Referrals: Katelin Baez DO [Primary Care Provider] - Forms: ED Satisfaction Letter Time of Disposition: 21:41 General Adult HPI - General Chief complaint: ED Extremity Problem,Nontraumatic Stated complaint: Left leg pain and swelling Time Seen by Provider: 07/06/18 19:25 Source: patient Mode of arrival: private vehicle Limitations: no limitations Nursing Notes Reviewed: Yes Vital Signs Reviewed: Yes - History of Present Illness HPI Narrative: 87-year-old female with complaints of one day of left lower extremity swelling. Patient lives alone but her son lives nearby and checks on her twice a day. Son at bedside reports that when he checked on her yesterday she did not have this problem but when he checked on her this afternoon she did. Son at bedside reports the patient has become more sedentary lately but denies any recent surgery, long car rides, travel outside of [place]. Patient denies any exogenous estrogen use. Pt reports baseline shortness of breath that is no worse than normal. However, pt is a poor historian and keeps commenting to son at bedside that her leg "looks really swollen." Son keeps stating that "yes mom, that's why we are here." this exchange happened several times while I was in the room. Pain Scale: 4 - Related Data Home Medications Medication Instructions Recorded Confirmed Aspirin [Lo-Dose Aspirin EC] 81 mg PO DAILY 04/11/17 05/17/17 Cholecalciferol (D-3) [Vitamin D] 1,000 unit PO DAILY 04/11/17 05/17/17 Clopidogrel [Plavix] 75 mg PO AD 04/11/17 05/17/17 Levothyroxine [Synthroid] 75 mcg PO DAILY 04/11/17 05/17/17 Loratadine [Allergy Relief] 10 mg PO DAILY 04/11/17 05/17/17 Simvastatin [Zocor] 20 mg PO HS 04/11/17 05/17/17 Metoprolol Succinate [Toprol Xl] 25 mg PO DAILY 05/17/17 05/17/17 Previous Rx's Medication Instructions Recorded Losartan Potassium [Cozaar] 50 mg PO DAILY #30 tab 05/17/17 Polyethylene Glycol 3350 [MiraLAX] 17 gm PO DAILY PRN #15 powd.pack 05/17/17 Nitrofurantoin Monohyd/M-Cryst 100 mg PO BID #14 capsule 05/06/18 [Macrobid 100 mg Capsule] Rivaroxaban [Xarelto] 1 dose PO AD 30 Days pack 07/06/18 Allergies Allergy/AdvReac Type Severity Reaction Status Date / Time No Known Allergies Allergy Verified 05/06/18 20:55 Review of Systems: All systems ED: reviewed and negative except as stated. Constitutional: Denies: fever, chills ENT ED: Denies: ear pain, throat pain Cardiovascular: Denies: chest pain, palpitations Respiratory: Denies: cough, Reports: dyspnea Gastrointestinal: Denies: abdominal pain, nausea, vomiting, diarrhea, constipation Genitourinary: Denies: urgency, dysuria, frequency Musculoskeletal: Denies: back pain, neck pain Integumentary: Denies: rash, abrasion Neurological: Denies: headache, weakness, numbness, paresthesias Psychiatric: Denies: anxiety, depression Endocrine: Denies: fatigue, heat or cold intolerance Hematological/Lymphatic: Denies: easy bleeding, easy bruising Allergic/Immunologic: Denies: facial swelling, urticaria All systems ED: reviewed and negative except as stated. Review of Systems: As Per HPI Past Medical History - Past Medical History Attestation: Yes The following information was validated with the patient. Medical history: Reports: hyperlipidemia, hypertension, thyroid disease Surgical history: Reports: cholecystectomy, knee replacement, other Psychiatric history: Reports: anxiety, depression PROGRAM DEVELOPMENT SPECIALIST history: Reports: no PROGRAM DEVELOPMENT SPECIALIST history - Social History Smoking Status: Never smoker Smokeless Tobacco Status: No Alcohol use: Reports: none Drug use: Reports: none Physical Exam General: A&O x 2 - place and self.. No acute distress. Well developed, well nourished. Head: atraumatic, normocephalic. ENT: No conjunctival injection, no scleral icterus. PERRLA. EOMI. Oropharynx non- erythematous. mucous membranes moist. Neuro: No focal deficits, no speech deficit, no facial droop, mentating well. BUE/BLE Str 5/5. Pulm: Lungs CTAB A/P. No wheezes, rales, ronchi. Cardio: RRR no m/r/g. Chest not tender to palpation. Abd: Soft, non-distended. Normoactive bowel sounds. Non-tender to palpation. No guarding. Non rigid. Extremities: Radial pulses 2+ michael, Dorsalis pedis 2+ in RLE, 1+ in LLE. LLE is swollen when compared to RLE. No pain with dorsiflexion at ankle. Pain with pa lpation along posterior aspect of LLE distal to popliteal space. Skin: warm, dry, intact. No rashes. Psych: Appropriate mood and affect. Answers questions appropriately. Cooperative with exam. - General Limitations: no limitations General appearance: alert, in no apparent distress Course Course Narrative: Ddx includes but is not limited to: DVT, PE Workup will include: CBC, BMP, D-Dimer, DVT US Study. If D-Dimer positive, will get CTA. Vital Signs Temperature 98.0 F 07/06/18 19:00 Pulse Rate 88 07/06/18 19:00 Respiratory Rate 18 07/06/18 19:00 Blood Pressure 177/90 07/06/18 19:00 O2 Sat by Pulse Oximetry 93 07/06/18 19:00 Temperature 98.0 F 07/06/18 19:00 Pulse Rate 88 07/06/18 19:00 Respiratory Rate 18 07/06/18 19:00 Blood Pressure 177/90 07/06/18 19:00 O2 Sat by Pulse Oximetry 93 07/06/18 19:00 Oxygen Delivery Oxygen Delivery Room Air Medical Decision Making - MDM Narrative Medical decision making narrative: Pts Ultrasound showed DVT in popliteal vein, and d-dimer was positive. Pt was sent for CTA, which was pending at time of sign-out. Pt will be signed out to Dr. Pereyra, please see his note for full results of the workup and di sposition. - Medical Records Medical records reviewed: Yes I reviewed the patient's medical records. - Lab Data Lab results reviewed: Yes I reviewed the patient's lab results. Result diagrams: 07/06/18 20:11 07/06/18 20:11 Lab Results 07/06/18 07/06/18 07/06/18 Range/Units 20:11 20:11 20:11 WBC 5.3 (4.3-11.1) K/mcL RBC 3.79 L (3.82-4.97) M/mcL Hgb 11.9 (11.5-15.4) g/dL Hct 36.5 (35.3-44.9) % MCV 96.3 (83.0-100.0) fL MCH 31.4 (28.0-33.3) pg MCHC 32.6 (31.6-35.5) g/dL RDW 13.4 (11.5-14.5) % Plt Count 175 (140-400) K/mcL MPV 9.9 (9.4-12.4) fL Immature Gran % 0.4 (0-4) % Seg Neutrophils % 59.8 % Lymphocytes % 21.7 % Monocytes % 13.2 % Eosinophils % 3.6 % Basophils % 1.3 % Neutrophils # 3.2 (1.6-8.9) K/mcL Lymphocytes # 1.2 (0.6-4.6) K/mcL Monocytes # 0.7 (0.0-1.3) K/mcL Eosinophils # 0.2 (0.0-0.6) K/mcL Basophils # 0.1 (0.0-0.2) K/mcL D-Dimer 26367 H (0-500) ng/mLFEU Sodium 140 (136-145) mEq/L Potassium 4.2 (3.5-5.1) mEq/L Chloride 107 (98-107) mEq/L Carbon Dioxide 29 (23-29) mEq/L BUN 13 (8-23) mg/dL Creatinine 1.01 (0.60-1.20) mg/dL Est GFR ( Amer) > 60 (> 60) Est GFR (Non-Af Amer) 52 L (> 60) BUN/Creatinine Ratio 13 (6-26) Glucose 113 H (70-105) mg/dL Calculated Osmolality 291 (280-300) Calcium 9.0 (8.6-10.3) mg/dL - Radiology Data Radiology results reviewed: Yes I reviewed the patient's radiology results. - EKG Data EKG #1 EKG attestation: Yes I reviewed and interpreted this EKG. EKG results narrative: HR 71, rhythm sinus, axis normal. ME 141, QRS 102, QTc 430. 2mm St depression in lead II, <1mm ST depression in leads III, aVF. Low voltage in precordial leads. Attestation Statement - Attestation Attestation: I, Enrique Jimenez, examined this patient and my medical decision-making was reviewed with the NET COORDINATOR/PA/Advanced Practice Nurse/Resident Physician. I agree with the documented findings, disposition and treatment plan as described except to the extent set forth below. 87-year-old female presents emergency Department with concerns of left lower extremity swelling. Patient denies recent travel, surgery, history of cancer, infection. Patient noticed that left lower extremity was swollen more than usual. She reports shortness of breath that is mildly worse than her baseline. Denies chest pain or hemoptysis. D-dimer significantly elevated. Ultrasound shows DVT of the left lower extremity in the popliteal vein. CTA pending at this time. Patient is otherwise resting comfortably in the emergency department.
[2018-07-06 20:22] LABS: Basophils # 0.1 K/mcL (0.0-0.2); Basophils % 1.3 %; Eosinophils # 0.2 K/mcL (0.0-0.6); Eosinophils % 3.6 %; Hematocrit 36.5 % (35.3-44.9); Hemoglobin 11.9 g/dL (11.5-15.4); Immature Granulocytes % 0.4 % (0-4); Lymphocytes # 1.2 K/mcL (0.6-4.6); Lymphocytes % 21.7 %; Mean Corpuscular HGB Conc 32.6 g/dL (31.6-35.5); Mean Corpuscular Hemoglobin 31.4 pg (28.0-33.3); Mean Corpuscular Volume 96.3 fL (83.0-100.0); Mean Platelet Volume 9.9 fL (9.4-12.4); Monocytes # 0.7 K/mcL (0.0-1.3); Monocytes % 13.2 %; Neutrophils # 3.2 K/mcL (1.6-8.9); Platelet Count 175 K/mcL (140-400); Red Blood Count 3.79 M/mcL (3.82-4.97); Red Cell Distribution Width 13.4 % (11.5-14.5); Segmented Neutrophils % 59.8 %
[2018-07-06 20:48] LABS: BUN/Creatinine Ratio 13 (6-26); Blood Urea Nitrogen 13 mg/dL (8-23); Carbon Dioxide 29 mEq/L (23-29); Chloride 107 mEq/L (98-107); Glucose 113 mg/dL (70-105); Osmolality,Calculated 291 (280-300); Potassium 4.2 mEq/L (3.5-5.1); Sodium 140 mEq/L (136-145); eGFR For Non-African Americans 52 (> 60)
[2018-07-06] MEDS ORDERED: Isovue-370 500 ML BOTTLE IVP ONE (20:55)
[2018-07-06] MEDS ORDERED: *HR* Heparin 5,000 UNIT/ML VIAL IVP PRN ×4 (23:28→23:35)
[2018-07-06] MEDS ORDERED: *HR* Heparin 5,000 UNIT/ML VIAL IVP ONE (23:28)
--- NOTE | 2018-07-06 23:32 | Emergency Department Note ---
Disposition Clinical Impression: Pulmonary embolism Deep vein thrombosis of lower extremity Qualifiers: Affected thrombotic vein of extremity: popliteal Chronicity: acute Laterality: left Qualified Code(s): I82.432 - Acute embolism and thrombosis of left popliteal vein Disposition: Admitted As Inpatient Condition: Good Instructions: Deep Venous Thrombosis (ED) Prescriptions: Rivaroxaban [Xarelto] 1 dose PO AD 30 Days pack Referrals: Katelin Baez DO [Primary Care Provider] - Forms: ED Satisfaction Letter Time of Disposition: 23:31 General Adult HPI - General Chief complaint: ED Extremity Problem,Nontraumatic Stated complaint: Left leg pain and swelling Time Seen by Provider: 07/06/18 19:25 Source: patient Mode of arrival: private vehicle Limitations: no limitations - History of Present Illness Pain Scale: 4 - Related Data Home Medications Medication Instructions Recorded Confirmed Aspirin [Lo-Dose Aspirin EC] 81 mg PO DAILY 04/11/17 05/17/17 Cholecalciferol (D-3) [Vitamin D] 1,000 unit PO DAILY 04/11/17 05/17/17 Clopidogrel [Plavix] 75 mg PO AD 04/11/17 05/17/17 Levothyroxine [Synthroid] 75 mcg PO DAILY 04/11/17 05/17/17 Loratadine [Allergy Relief] 10 mg PO DAILY 04/11/17 05/17/17 Simvastatin [Zocor] 20 mg PO HS 04/11/17 05/17/17 Metoprolol Succinate [Toprol Xl] 25 mg PO DAILY 05/17/17 05/17/17 Previous Rx's Medication Instructions Recorded Losartan Potassium [Cozaar] 50 mg PO DAILY #30 tab 05/17/17 Polyethylene Glycol 3350 [MiraLAX] 17 gm PO DAILY PRN #15 powd.pack 05/17/17 Nitrofurantoin Monohyd/M-Cryst 100 mg PO BID #14 capsule 05/06/18 [Macrobid 100 mg Capsule] Rivaroxaban [Xarelto] 1 dose PO AD 30 Days pack 07/06/18 Allergies Allergy/AdvReac Type Severity Reaction Status Date / Time No Known Allergies Allergy Verified 05/06/18 20:55 Past Medical History - Past Medical History Medical history: Reports: hyperlipidemia, hypertension, thyroid disease Surgical history: Reports: cholecystectomy, knee replacement, other Psychiatric history: Reports: anxiety, depression NICU RN history: Reports: no NICU RN history - Social History Smoking Status: Never smoker Smokeless Tobacco Status: No Alcohol use: Reports: none Drug use: Reports: none Physical Exam - General Limitations: no limitations General appearance: alert, in no apparent distress Course Vital Signs Temperature 98.0 F 07/06/18 19:00 Pulse Rate 88 07/06/18 19:00 Respiratory Rate 18 07/06/18 19:00 Blood Pressure 177/90 07/06/18 19:00 O2 Sat by Pulse Oximetry 93 07/06/18 19:00 Temperature 98.0 F 07/06/18 19:00 Pulse Rate 93 07/06/18 23:13 Respiratory Rate 20 07/06/18 23:13 Blood Pressure 166/84 07/06/18 23:13 O2 Sat by Pulse Oximetry 98 07/06/18 23:13 Oxygen Delivery Oxygen Delivery Room Air Medical Decision Making - MDM Narrative Medical decision making narrative: Received signout pending CT pulmonary embolism protocol. CT was positive for pulmonary embolism the case was discussed with the hospitalist the patient was accepted to the hospitalist service - Lab Data Result diagrams: 07/06/18 20:11 07/06/18 20:11 Lab Results 07/06/18 07/06/18 07/06/18 Range/Units 20:11 20:11 20:11 WBC 5.3 (4.3-11.1) K/mcL RBC 3.79 L (3.82-4.97) M/mcL Hgb 11.9 (11.5-15.4) g/dL Hct 36.5 (35.3-44.9) % MCV 96.3 (83.0-100.0) fL MCH 31.4 (28.0-33.3) pg MCHC 32.6 (31.6-35.5) g/dL RDW 13.4 (11.5-14.5) % Plt Count 175 (140-400) K/mcL MPV 9.9 (9.4-12.4) fL Immature Gran % 0.4 (0-4) % Seg Neutrophils % 59.8 % Lymphocytes % 21.7 % Monocytes % 13.2 % Eosinophils % 3.6 % Basophils % 1.3 % Neutrophils # 3.2 (1.6-8.9) K/mcL Lymphocytes # 1.2 (0.6-4.6) K/mcL Monocytes # 0.7 (0.0-1.3) K/mcL Eosinophils # 0.2 (0.0-0.6) K/mcL Basophils # 0.1 (0.0-0.2) K/mcL D-Dimer 33482 H (0-500) ng/mLFEU Sodium 140 (136-145) mEq/L Potassium 4.2 (3.5-5.1) mEq/L Chloride 107 (98-107) mEq/L Carbon Dioxide 29 (23-29) mEq/L BUN 13 (8-23) mg/dL Creatinine 1.01 (0.60-1.20) mg/dL Est GFR ( Amer) > 60 (> 60) Est GFR (Non-Af Amer) 52 L (> 60) BUN/Creatinine Ratio 13 (6-26) Glucose 113 H (70-105) mg/dL Calculated Osmolality 291 (280-300) Calcium 9.0 (8.6-10.3) mg/dL
[2018-07-07 00:12] LABS: Hematocrit 34.4 % (35.3-44.9); Hemoglobin 11.2 g/dL (11.5-15.4); Mean Corpuscular HGB Conc 32.6 g/dL (31.6-35.5); Mean Corpuscular Hemoglobin 31.3 pg (28.0-33.3); Mean Corpuscular Volume 96.1 fL (83.0-100.0); Mean Platelet Volume 10.2 fL (9.4-12.4); Platelet Count 165 K/mcL (140-400); Red Blood Count 3.58 M/mcL (3.82-4.97); Red Cell Distribution Width 13.4 % (11.5-14.5)
[2018-07-07] MEDS ORDERED: Naloxone 0.4 MG/ML INJ IVP PRN (01:07)
--- NOTE | 2018-07-07 01:12 | Internal Med History&Physical ---
Date of Encounter: 07/07/18 Time of Encounter: 01:11 Internal Medicine - H&P: HPI Chief complaint: Left lower extremity swelling Admitted From: Home Plans for Post Hospital Care: Home History of present illness: Ms. Vera is a 87 year old female Patient with history of hypertension, hyperlipidemia who presented to the ER with complaints of swelling in her left lower extremity that was first noticed today. Patient lives alone but her son lives close by. He had checked on her yesterday and then again today. She noti jeanne that her left lower was swollen today which was not present yesterday. Patient denies any chest pain or palpitations. Denies any significant pain in this leg. No nausea or vomiting. No hematemesis or melena. No prior history of DVT or other clots. She had a recent fall and apparently had a pelvic fracture but there is no record of this year. She has been ambulating well without any issues. Past Med Surg Social Fam HX - Past Medical History Medical history: hyperlipidemia, hypertension, thyroid disease Additional medical history: broken pelvis (Apr 2017) Psychiatric history: anxiety, depression - Past Surgical History Surgical History: cholecystectomy, knee replacement, other Additional surgical history: heart cath, shoulder replacement - Social History Smoking Status: Never smoker Smokeless Tobacco Status: No Alcohol use: none Drug use: none - Additional Family History Additional family history: Family history reviewed and found to be noncont ributory at this time Internal Medicine - H&P: Meds Cholecalciferol (D-3) [Vitamin D] 1,000 unit PO DAILY 04/11/17 [History] Clopidogrel [Plavix] 75 mg PO AD 04/11/17 [History] Levothyroxine [Synthroid] 75 mcg PO HS 04/11/17 [History] Loratadine [Allergy Relief] 10 mg PO DAILY 04/11/17 [History] Simvastatin [Zocor] 20 mg PO 04/11/17 [History] Metoprolol Succinate [Toprol Xl] 50 mg PO BID 05/17/17 [History] Escitalopram Oxalate 10 PO DAILY 07/07/18 [History] Losartan Potassium [Cozaar] 50 mg PO BID 07/07/18 [History] Allergy/AdvReac Type Severity Reaction Status Date / Time No Known Allergies Allergy Verified 05/06/18 20:55 All Systems PM: A 10-system review of systems was performed and is negative for pertinent findings except as documented above in the HPI. - Constitutional Constitutional: no chills, no fever(s), no night sweats - EENT Eyes: no change in vision, no discharge, no pain, no photophobia Ears: no ear discharge, no ear pain, no tinnitus Nose, mouth and throat: no dysphagia, no nasal discharge, no neck pain, no sore throat - Cardiovascular Cardiovascular ROS IM: no chest pain, no diaphoresis, no dyspnea, no lightheadedness, no palpitations, no syncope - Respiratory Respiratory: cough, no dyspnea, no wheezing, no excessive phlegm production - Gastrointestinal Gastrointestinal: no abdominal pain, no diarrhea, no hematemesis, no hematochezia, no melena, no nausea, no vomiting - Genitourinary Genitourinary: no change in urinary stream, no dysuria, no flank pain, no hematuria - Musculoskeletal Musculoskeletal ROS IM: no numbness, no tingling - Integumentary Integumentary IM: no rash, no unusual bruising - Neurological Neurological ROS: no confusion, no convulsions, no focal weakness, no numbness, no tingling, no tremor(s) - Hematologic/Lymphatic Hematologic/Lymphatic: no easy bruising - Constitutional Vitals: Temp Pulse Resp BP Pulse Ox 98.0 F 74 20 175/75 96 07/06/18 19:00 07/07/18 00:13 07/07/18 00:13 07/07/18 00:13 07/07/18 00:13 General appearance: Present: cooperative, mild distress, A&O X 3, pleasant, answers questions appropriately Exam: General: Patient is alert, no acute distress, oriented x 3 Head: atraumatic, normocephalic, ENT: Mucous membranes moist Eye: normal appearance, PERRL, no scleral icterus, no conjunctival injection Neck: normal inspection, trachea midline, full ROM, no carotid bruits Chest: normal inspection, symmetric chest rise Respiratory: Good respiratory effort. Normal breath sounds. No wheezing or crackles. Cardiovascular: Regular rate and rhythm. s1 and s2 normal No clicks, rubs, gallops, or murmurs. Swelling over the left lower extremity Abdomen: Abdomen is soft, nontender. Bowel sounds are present Musculoskeletal: Left lower extremity swollen below the knee compared to the right Skin: warm, dry, intact. Neuro: Alert oriented x 3 normal cranial nerves, no focal deficits Psych: Patient's affect is normal Internal Med - H&P Results - Labs CBC & Chem 7: 07/06/18 23:55 07/06/18 20:11 Labs: Short CBC 07/06/18 07/06/18 Range/Units 20:11 23:55 WBC 5.3 5.7 (4.3-11.1) K/mcL Hgb 11.9 11.2 L (11.5-15.4) g/dL Hct 36.5 34.4 L (35.3-44.9) % Plt Count 175 165 (140-400) K/mcL Neutrophils # 3.2 (1.6-8.9) K/mcL BMP 07/06/18 20:11 Sodium 140 Potassium 4.2 Chloride 107 Carbon Dioxide 29 BUN 13 Creatinine 1.01 Glucose 113 H Calcium 9.0 - Impressions ITS Impressions Chest CTA 07/06/18 20:55 IMPRESSION: Multiple pulmonary emboli are noted. There is no secondary findings to suggest right heart strain. Multifocal ground-glass attenuation bilaterally, age-indeterminate. This may be chronic however may represent multifocal atelectasis or mild edema Right middle lobe 5 mm nodule without definite calcification Critical results were called by Dr. Ritesh Duran to Dr. Pereyra On 07/06/2018 at 23:07. RECOMMENDATIONS: Fleischner Society guidelines for follow-up and management of incidentally detected pulmonary nodules: Single Solid Nodule: Nodule size less than 6 mm In a low-risk patient, no routine follow-up. In a high-risk patient, optional CT at 12 months. - Low risk patients include individuals with minimal or absent history of smoking and other known risk factors. - High risk patients include individuals with a history or smoking or known risk factors. Radiology 2017 http://pubs.rsna.org/doi/full/10.1148/radiol.[email or web address] D/ / Ritesh Duran / Ritesh Duran Interpreting Provider: Ritesh Duran - Assessment and Plan (1) Pulmonary embolism Current Visit: Yes Status: Acute Assessment and plan: Multiple pulmonary emboli noted in the left lower lobe and right middle lobe pul monary arteries. From left lower leg DVT. Most likely a provoked related to recent fall and possible pelvic fracture. Patient has been started on IV heparin which we will continue. Obtain 2-D echocardiogram to evaluate for right frontal/strain. Monitor vital signs. Keep sats greater than 88%. High risk for complications. Consider transition to direct oral anticoagulants after Enciso check. Patient will need to be placed on anticoagulation for 6 months. Qualifiers: Pulmonary embolism type: other Chronicity: acute Acute cor pulmonale presence: without acute cor pulmonale Qualified Code(s): I26.99 - Other pulmonary embolism without acute cor pulmonale (2) Deep vein thrombosis of lower extremity Current Visit: Yes Status: Acute Assessment and plan: Management as above with IV heparin. Qualifiers: Affected thrombotic vein of extremity: popliteal Chronicity: acute Laterality: left Qualified Code(s): I82.432 - Acute embolism and thrombosis of left popliteal vein (3) Hyperlipidemia Current Visit: Yes Status: Chronic Assessment and plan: Continue statin Qualifiers: Hyperlipidemia type: mixed hyperlipidemia Qualified Code(s): E78.2 - Mixed hyperlipidemia (4) Hypertension Current Visit: Yes Status: Chronic Assessment and plan: Blood pressure elevated in the ER. Resume home medications. Adjust antihypertensive regimen based on response. Qualifiers: Hypertension type: essential hypertension Qualified Code(s): I10 - Essential (primary) hypertension - Time Spent With Patient Total time spent is greater than 50% in coordination of care (as documented) at patient's floor/unit and/or counseling patient: - VTE Reasons for not Prescribing Prophylaxis: Not indicated-Anticoagulated or INR therapeutic
[2018-07-07] MEDS: Heparin 25,000 UNIT/250 ML D5W 25,000 UNIT/250 ML IV.SOLN IVC SCH ×2 (02:24→21:36)
[2018-07-07 07:08] LABS: Basophils % 0.7 %; Eosinophils # 0.2 K/mcL (0.0-0.6); Hematocrit 33.7 % (35.3-44.9); Hemoglobin 10.9 g/dL (11.5-15.4); Immature Granulocytes % 0.2 % (0-4); Lymphocytes # 1.3 K/mcL (0.6-4.6); Lymphocytes % 23.4 %; Mean Corpuscular HGB Conc 32.3 g/dL (31.6-35.5); Mean Corpuscular Hemoglobin 31.1 pg (28.0-33.3); Mean Platelet Volume 10.5 fL (9.4-12.4); Monocytes # 0.7 K/mcL (0.0-1.3); Monocytes % 12.2 %; Neutrophils # 3.3 K/mcL (1.6-8.9); Platelet Count 172 K/mcL (140-400); Red Blood Count 3.51 M/mcL (3.82-4.97); Red Cell Distribution Width 13.4 % (11.5-14.5); Segmented Neutrophils % 59.5 %
[2018-07-07 08:33] LABS: BUN/Creatinine Ratio 15 (6-26); Blood Urea Nitrogen 15 mg/dL (8-23); Calcium 8.5 mg/dL (8.6-10.3); Carbon Dioxide 25 mEq/L (23-29); Chloride 110 mEq/L (98-107); Glucose 114 mg/dL (70-105); Osmolality,Calculated 292 (280-300); Potassium 3.7 mEq/L (3.5-5.1); Sodium 140 mEq/L (136-145); eGFR For Non-African Americans 52 (> 60)
[2018-07-07] MEDS: Metoprolol XL (24 HR) Succ 25 MG TAB.ER.24H PO SCH ×2 (09:06→21:32)
[2018-07-07] MEDS: Loratadine 10 MG TABLET PO SCH (09:07)
--- NOTE | 2018-07-07 11:39 | Electrocardiograph Report ---
[address] [place] [id number] Test Date: 2018-07-06 Pat Name: Syeda Vera Department: EXAM23 Room: 2A35 Gender: F Glass Glazier: : 1930 Requested By: Madison Leung Order Number: [id number] Reading MD: Rico Mcclure Measurements Intervals [place] Rate: 71 P: 47 IA: 141 QRS: 5 QRSD: 102 T: -16 QT: 395 QTc: 430 Interpretive Statements Sinus rhythm Low voltage, precordial leads Abnormal R-wave progression, early transition st/t abnormality possible inferior ischemia. Electronically Signed On 07-07-2018 11:38:02 EDT by Rico Mcclure
--- NOTE | 2018-07-07 17:15 | Event Note ---
Date of Encounter: 07/07/18 Time of Encounter: 17:12 Patient has history of dementia and lives with his son, she has recurrent of falls at home and she broke her hip last year after fall, Now she is pretty much home bound. She has significant left lower extremity swelling from DVT denies chest pain shortness of breasts. We will continue heparin drip probably discharge on Xarelto or ELiquis, by tomorrow. Pending TTE.
[2018-07-08 01:43] LABS: Basophils # 0.1 K/mcL (0.0-0.2); Basophils % 1.3 %; Eosinophils # 0.3 K/mcL (0.0-0.6); Eosinophils % 5.6 %; Hematocrit 35.4 % (35.3-44.9); Hemoglobin 11.5 g/dL (11.5-15.4); Immature Granulocytes % 0.4 % (0-4); Lymphocytes # 1.5 K/mcL (0.6-4.6); Lymphocytes % 31.4 %; Mean Corpuscular HGB Conc 32.5 g/dL (31.6-35.5); Mean Corpuscular Hemoglobin 30.7 pg (28.0-33.3); Mean Corpuscular Volume 94.4 fL (83.0-100.0); Mean Platelet Volume 10.3 fL (9.4-12.4); Monocytes # 0.5 K/mcL (0.0-1.3); Monocytes % 11.3 %; Neutrophils # 2.3 K/mcL (1.6-8.9); Platelet Count 185 K/mcL (140-400); Red Blood Count 3.75 M/mcL (3.82-4.97); Red Cell Distribution Width 13.2 % (11.5-14.5)
[2018-07-08 01:54] LABS: BUN/Creatinine Ratio 16 (6-26); Blood Urea Nitrogen 13 mg/dL (8-23); Calcium 8.5 mg/dL (8.6-10.3); Carbon Dioxide 24 mEq/L (23-29); Chloride 109 mEq/L (98-107); Glucose 98 mg/dL (70-105); Osmolality,Calculated 290 (280-300); Potassium 3.7 mEq/L (3.5-5.1); Sodium 140 mEq/L (136-145); eGFR For Non-African Americans > 60 (> 60)
[2018-07-08] MEDS: Metoprolol XL (24 HR) Succ 25 MG TAB.ER.24H PO SCH (08:15)
[2018-07-08] MEDS: Loratadine 10 MG TABLET PO SCH (08:16)
[2018-07-08 11:06] VITALS: BP 154/83
[2018-07-08] MEDS ORDERED: *HR* Rivaroxaban 15 MG TABLET PO SCH (14:30)
--- NOTE | 2018-07-08 14:33 | Discharge Summary ---
Orders not resulted at time of discharge: Pending orders 07/08/18 15:10 Heparin anti-factor XA UFH [COAG] Stat Date of Encounter: 07/08/18 Time of Encounter: 14:14 Hospital course: Ms. Vera is a 87 year old female Patient with history of hypertension, hyperlipidemia who presented to the ER with complaints of swelling in her left lower extremity that was first noticed today. Patient lives alone but her son lives close by. He had checked on her yesterday and then again today. She noticed that her left lower was swollen today which was not present yesterday. Patient denies any chest pain or palpitations. Denies any significant pain in this leg. No nausea or vomiting. No hematemesis or melena. No prior history of DVT or other clots. She had a recent fall and apparently had a pelvic fracture but there is no record of this year. She has been ambulating well without any issues. In ER CTA showed Multiple pulmonary emboli are noted. There is no secondary findings to suggest right heart strain. Multifocal ground-glass attenuation bilaterally, age-indeterminate. This rachel chronic however may represent multifocal atelectasis or mild edema, Right middle lobe 5 mm nodule without definite calcification. (1) Pulmonary embolism Current Visit: Yes Status: Acute Assessment and plan: Multiple pulmonary emboli noted in the left lower lobe and right middle lobe pulmonary arteries. From left lower leg DVT. Most likely a provoked related to recent fall and possible pelvic fracture. Patient has been started on IV heparin which we will continue. patient is on RA, denies Chest pain and SOB, no need for TTE clinically she is asymptomatic from PE, follow up with PCP discussed with spring encaser , christiano script faxed to her pharamcy Qualifiers: Pulmonary embolism type: other Chronicity: acute Acute cor pulmonale presence: without acute cor pulmonale Qualified Code(s): I26.99 - Other pulmonary embolism without acute cor pulmonale (2) Deep vein thrombosis of lower extremity Current Visit: Yes Status: Acute Assessment and plan: Management as above with IV heparin. discharge on xarelto Qualifiers: Affected thrombotic vein of extremity: popliteal Chronicity: acute Laterality: left Qualified Code(s): I82.432 - Acute embolism and thrombosis of left popliteal vein (3) Hyperlipidemia Current Visit: Yes Status: Chronic Assessment and plan: Continue statin Qualifiers: Hyperlipidemia type: mixed hyperlipidemia Qualified Code(s): E78.2 - Mixed hyperlipidemia (4) Hypertension Current Visit: Yes Status: Chronic Assessment and plan: Blood pressure elevated in the ER. Resume home medications. Adjust antihypertensive regimen based on response. Qualifiers: (5) Right middle lobe 5 mm nodule without definite calcification. follow up with PCP Nodule size less than 6 mm In a low-risk patient, no routine follow-up. In a high-risk patient, optional CT at 12 months. Discharge discussed with: patient, family Time spent discussing smoking cessation with patient: more than 10 minutes - Time Spent with Patient Total time spent providing and/or coordinating discharge services: Time spent: Less than 30 minutes - Discharge Medications Prescriptions: New Rivaroxaban [Xarelto] 15 mg PO BID 21 Days #42 tablet Rivaroxaban [Xarelto] 20 mg PO DAILY #7 tablet Continued Simvastatin [Zocor] 20 mg PO Q48H Levothyroxine [Synthroid] 75 mcg PO QAM Cholecalciferol (D-3) [Vitamin D] 1,000 unit PO QAM Clopidogrel [Plavix] 75 mg PO Q48H Loratadine [Allergy Relief] 10 mg PO QPM PRN PRN Reason: Allergy Symptoms Metoprolol Succinate [Toprol Xl] 50 mg PO BID Losartan Potassium [Cozaar] 50 mg PO BID Escitalopram [Lexapro] 10 mg PO QPM Mirtazapine [Remeron] 15 mg PO HS Multivitamin [Daily Multiple Vitamin] 1 tab PO QAM Home Medications: Cholecalciferol (D-3) [Vitamin D] 1,000 unit PO QAM 04/11/17 [History] Clopidogrel [Plavix] 75 mg PO Q48H 04/11/17 [History] Levothyroxine [Synthroid] 75 mcg PO QAM 04/11/17 [History] Loratadine [Allergy Relief] 10 mg PO QPM PRN 04/11/17 [History] Simvastatin [Zocor] 20 mg PO Q48H 04/11/17 [History] Metoprolol Succinate [Toprol Xl] 50 mg PO BID 05/17/17 [History] Escitalopram [Lexapro] 10 mg PO QPM 07/07/18 [History] Losartan Potassium [Cozaar] 50 mg PO BID 07/07/18 [History] Mirtazapine [Remeron] 15 mg PO HS 07/07/18 [History] Multivitamin [Daily Multiple Vitamin] 1 tab PO QAM 07/07/18 [History] Rivaroxaban [Xarelto] 15 mg PO BID 21 Days #42 tablet 07/08/18 [Rx] Rivaroxaban [Xarelto] 20 mg PO DAILY #7 tablet 07/08/18 [Rx] Allergies/Adverse Reactions: Allergy/AdvReac Type Severity Reaction Status Date / Time No Known Allergies Allergy Verified 07/07/18 18:01 Date of admission: 07/07/18 01:07 Primary care physician: Katelin Baez DO - Constitutional Vitals: Temp Pulse Resp BP Pulse Ox 97.8 F 69 16 154/83 95 07/08/18 11:04 07/08/18 11:04 07/08/18 11:04 07/08/18 11:04 07/08/18 11:04 General appearance: Present: cooperative, mild distress, A&O X 3, pleasant, answers questions appropriately Exam: General: Patient is alert, no acute distress, oriented x 3 Head: atraumatic, normocephalic, ENT: Mucous membranes moist Eye: normal appearance, PERRL, no scleral icterus, no conjunctival injection Neck: normal inspection, trachea midline, full ROM, no carotid bruits Chest: normal inspection, symmetric chest rise Respiratory: Good respiratory effort. Normal breath sounds. No wheezing or crackles. Cardiovascular: Regular rate and rhythm. s1 and s2 normal No clicks, rubs, gallops, or murmurs. Swelling over the left lower extremity Abdomen: Abdomen is soft, nontender. Bowel sounds are present Musculoskeletal: Left lower extremity swollen below the knee compared to the right Skin: warm, dry, intact. Neuro: Alert oriented x 3 normal cranial nerves, no focal deficits Psych: Patient's affect is normal - Patient Status Disposition: Home, Self-Care Condition: Good Functional capacity at discharge: independent ambulation Overall status at discharge: patient is back to baseline - Discharge Instructions Follow Up With: Katelin Baez DO [Primary Care Provider] - - VTE Reasons for not Prescribing Prophylaxis: Not indicated-Anticoagulated or INR therapeutic
[2018-07-08] MEDS ORDERED: Apixaban 5 MG TABLET PO SCH (15:30)
[2018-07-15] MEDS ORDERED: Apixaban 5 MG TABLET PO SCH (18:00)
== END 2018-07-08 15:41 | disposition home or self-care (01) | DRG 176 ==
LOC: 2ANU 18:57 → EMEROOARM 18:57 → 2ANU 07-07 00:39 → SUATTDRO 07-07 01:07
PROVIDERS: ADMIT Internal Medicine; ATTEND Hospitalist